=== PATIENT | male | born 1965 | race African-American/Black ===

== ENCOUNTER 2023-07-09 20:26 | Inpatient (IN) | payer OTHER ==
[~2023-07-09] VITALS: Ht 167.6 cm; Wt 70.8 kg
[2023-07-09 21:57] LABS: BASOPHILS # (AUTO) 0.2 K/uL (0.0-0.2); EOSINOPHILS % (AUTO) 0.1 % (0.0-6.0); HEMATOCRIT 40 % (39-51); HEMOGLOBIN 13.3 g/dL (13.5-17.5); LYMPHOCYTES % (AUTO) 5.7 % (20.0-44.0); MEAN CORPUSCULAR HEMOGLOBIN 31 PG (26.0-33.0); MEAN CORPUSCULAR HGB CONC 33 g/dl (31.0-36.0); MEAN CORPUSCULAR VOLUME 93 fL (80-96); MONOCYTES # (AUTO) 0.9 K/uL (0.1-1.30); NEUTROPHILS # (AUTO) 15.4 K/uL (1.8-8.9); NEUTROPHILS % (AUTO) 88.2 % (43.0-81.0); PLATELET COUNT (AUTO) 307 K/uL (150-450); RED BLOOD CELL COUNT(AUTO) 4.36 MIL/uL (4.5-6.0); RED CELL DISTRIBUTION WIDTH 16.1 % (11.5-15.0); WHITE BLOOD COUNT (AUTO) 17.4 K/uL (4.3-11.0)
[2023-07-09] MEDS: IV NS 0.9% 1,000 ML BAG IV ONE ×2 (21:58→22:24)
[2023-07-09 22:13] LABS: INR 1.07 (0.91-1.10); PARTIAL THROMBOPLASTIN TIME 31.9 SEC (24.3-34.3); PROTHROMBIN TIME 11.3 SECS (9.2-11.1)
[2023-07-09] MEDS ORDERED: PIPERACI/TAZO 3.375GM/D5W 50ML PB IV ONE (22:22)
[2023-07-09] MEDS: PIPERACILLIN /TAZOBACTAM 3.375 G in IV D5W 50 ML IV ONE ×2 (22:24→22:49)
[2023-07-09] MEDS: VANCOMYCIN 1 GM in IV D5W 250 ML IV ONE (22:27)
[2023-07-09] MEDS ORDERED: VANCOMYCIN 1 GM /D5W 250 ML PB IV ONE (22:27)
[2023-07-09 22:29] LABS: ANISOCYTOSIS 1+; BASOPHILS % (MANUAL) 0 % (0.0-2.0); CREATININE 2.1 mg/dL (0.6-1.3); EOSINOPHILS % (MANUAL) 0 % (0-4); LYMPHOCYTES % (MANUAL) 7 % (16-48); MONOCYTES % (MANUAL) 4 % (0-11.0); NEUTROPHILS % (MANUAL) 89 (42-76); OVALOCYTES 1+; PLATELET ESTIMATE ADEQUATE; POTASSIUM 4.6 mmol/L (3.5-5.1)
[2023-07-09 22:33] LABS: ALBUMIN 1.9 g/dL (3.4-5.0); BILIRUBIN,DIRECT 0.1 mg/dL (0.0-0.2); BILIRUBIN,TOTAL 0.5 mg/dL (0.2-1.0); TOTAL PROTEIN, SERUM 7.4 g/dL (6.4-8.2)
[2023-07-09] MEDS ORDERED: MAGNESIUM HYDROXIDE 30 ML UDC PO PRN (23:30)
[2023-07-09] MEDS ORDERED: Z GUARD REMEDY 4 OZ OINT TP PRN (23:30)
[2023-07-09] MEDS ORDERED: IV NS 0.9% 1,000 ML IV PRN (23:30)
[2023-07-09] MEDS ORDERED: ACETAMINOPHEN 325 MG TABLET PO PRN (23:30)
[2023-07-09] MEDS ORDERED: MAG HYDROX/AL HYDROX/SIMETH 30 ML UDC PO PRN (23:30)
[2023-07-09] MEDS ORDERED: ONDANSETRON HCL/PF 4 MG/2 ML VIAL IVP PRN (23:30)
[2023-07-09] MEDS ORDERED: ZOLPIDEM TARTRATE 5 MG TABLET PO PRN (23:30)
[2023-07-09] MEDS: PANTOPRAZOLE 40 MG VIAL IV ONE (23:43)
[2023-07-10] VITALS (15 sets, daily range): BP systolic 102–122; BP diastolic 75–88; TEMP 97.9–98.8; O2SAT 97–100
[2023-07-10] MEDS ORDERED: MAGNESIUM HYDROXIDE 30 ML UDC PO PRN (02:00)
[2023-07-10] MEDS ORDERED: ONDANSETRON HCL/PF 4 MG/2 ML VIAL IVP PRN (02:00)
[2023-07-10] MEDS ORDERED: ZOLPIDEM TARTRATE 5 MG TABLET PO PRN (02:00)
[2023-07-10] MEDS ORDERED: Z GUARD REMEDY 4 OZ OINT TP PRN (02:00)
[2023-07-10] MEDS ORDERED: MAG HYDROX/AL HYDROX/SIMETH 30 ML UDC PO PRN (02:00)
[2023-07-10] MEDS ORDERED: ACETAMINOPHEN 325 MG TABLET PO PRN (02:00)
[2023-07-10] MEDS: IV NS 0.9% 1,000 ML IV PRN (04:35)
[2023-07-10] MEDS ORDERED: PIPERACILLIN /TAZOBACTAM 3.375 G in IV D5W 50 ML IV SCH ×2 (06:00)
[2023-07-10] MEDS: PANTOPRAZOLE 40 MG VIAL IV SCH (08:30)
[2023-07-10] MEDS ORDERED: GLYC2TAB21 GT (08:31)
[2023-07-10] MEDS ORDERED: ACET160E36 PO (08:31)
[2023-07-10] MEDS ORDERED: MAGN400O6 GT (08:31)
[2023-07-10] MEDS ORDERED: SENN8.6T19 GT (08:31)
[2023-07-10] MEDS ORDERED: NA P133E RC (08:31)
[2023-07-10] MEDS ORDERED: CHLO118L6 TP (08:31)
[2023-07-10] MEDS ORDERED: BISA10SU11 RC (08:31)
[2023-07-10] MEDS ORDERED: DOCU100T2 GT (08:31)
[2023-07-10] MEDS ORDERED: ENOX40DI SQ (08:31)
[2023-07-10] MEDS ORDERED: NUTR250L50 GT (08:31)
[2023-07-10] MEDS ORDERED: FAMO20TA8 PO (08:31)
[2023-07-10] MEDS ORDERED: ALBU2.5V38 IH (08:31)
[2023-07-10] MEDS ORDERED: ACET-637 GT (08:31)
[2023-07-10] MEDS ORDERED: AMLO-213 GT (08:31)
[2023-07-10] MEDS ORDERED: PANTOPRAZOLE 40 MG VIAL IV SCH (09:00)
[2023-07-10] MEDS: PIPERACILLIN /TAZOBACTAM 3.375 G in IV D5W 100 ML IV SCH (10:54)
[2023-07-10] MEDS: NEOMY SULF/BACITRAC ZN/POLY 15 GM TUBE TP SCH (10:54)
[2023-07-10] MEDS: THERAHONEY GEL 1.5 OZ TUBE TP SCH (14:00)
[2023-07-10] MEDS: MUPIROCIN OINT 2% 22 GM TUBE TP SCH (14:00)
[2023-07-10] MEDS ORDERED: CHLORHEXIDINE GLUCONATE 15 ML UDC MM SCH (16:00)
[2023-07-10] MEDS ORDERED: BISACODYL SUPP (10 MG) 10 MG/SUPP.RECT SUPP.RECT RC PRN (16:00)
[2023-07-10] MEDS: VANCOMYCIN 1 GM in IV D5W 250 ML IV SCH (17:16)
[2023-07-10 19:36] LABS: BASOPHILS % (AUTO) 0.2 % (0.0-2.0); EOSINOPHILS % (AUTO) 0.3 % (0.0-6.0); HEMATOCRIT 35 % (39-51); HEMOGLOBIN 11.6 g/dL (13.5-17.5); LYMPHOCYTES # (AUTO) 1.3 K/uL (0.8-4.8); LYMPHOCYTES % (AUTO) 9.6 % (20.0-44.0); MEAN CORPUSCULAR HEMOGLOBIN 31 PG (26.0-33.0); MEAN CORPUSCULAR HGB CONC 33 g/dl (31.0-36.0); MEAN CORPUSCULAR VOLUME 93 fL (80-96); MONOCYTES # (AUTO) 0.9 K/uL (0.1-1.30); MONOCYTES % (AUTO) 6.8 % (2.0-12.0); NEUTROPHILS # (AUTO) 10.9 K/uL (1.8-8.9); NEUTROPHILS % (AUTO) 83.1 % (43.0-81.0); PLATELET COUNT (AUTO) 270 K/uL (150-450); RED BLOOD CELL COUNT(AUTO) 3.76 MIL/uL (4.5-6.0); RED CELL DISTRIBUTION WIDTH 16.5 % (11.5-15.0); WHITE BLOOD COUNT (AUTO) 13.2 K/uL (4.3-11.0)
[2023-07-10 20:49] LABS: CREATININE, URINE 133.9 MG/DL (30.0-125.0); URINE TOTAL PROTEIN 46.3 mg/dL (0-11.9)
[2023-07-10 20:52] LABS: ALBUMIN 1.7 g/dL (3.4-5.0); BILIRUBIN,TOTAL 0.6 mg/dL (0.2-1.0); CALCIUM, SERUM 8.5 mg/dL (8.5-10.1); CREATININE 1.3 mg/dL (0.6-1.3); PHOSPHORUS 4.4 mg/dL (2.5-4.9); TOTAL PROTEIN, SERUM 6.7 g/dL (6.4-8.2)
[2023-07-10 21:05] LABS: APPEARANCE,URINE SLIGHTLY CLOUDY (CLEAR); COLOR,URINE YELLOW (YELLOW)
[2023-07-10 21:06] LABS: BILIRUBIN,URINE NEGATIVE (NEGATIVE); BLOOD, URINE 2+ Ery/uL (NEGATIVE); KETONES,URINE NEGATIVE (NEGATIVE); LEUKOCYTE ESTERASE ,URINE TRACE (NEGATIVE); PROTEIN,URINE TRACE mg/dl (NEGATIVE); UGLUCOSE NEGATIVE (NEGATIVE)
[2023-07-10] MEDS: SENNOSIDES 8.6 MG TABLET GT SCH (21:06)
[2023-07-10] MEDS: GLYCOPYRROLATE 1 MG TABLET GT SCH (21:06)
[2023-07-10 21:07] LABS: NITRITE, URINE NEGATIVE (NEGATIVE); UROBILINOGEN,URINE 0.2 EU/dL (0.2)
[2023-07-10 21:11] LABS: ADD URINE CULTURE NO; BACTERIA,URINE 1+ /HPF (None Seen); RBC,URINE 21-50 /HPF (0-2); URINE AMORPHOUS URATE Few /HPF (None Seen)
[2023-07-10 21:26] LABS: EOSINOPHIL,URINE None Seen
[2023-07-11] VITALS (12 sets, daily range): BP systolic 99–117; BP diastolic 59–83; TEMP 97.5–98.7; O2SAT 95–100
[2023-07-11] MEDS: DOCUSATE SODIUM LIQ 100 MG/10 ML UDC GT SCH (08:15)
[2023-07-11] MEDS: PROSOURCE / PROSTAT (PYXIS) 30 ML UDC GT SCH (08:16)
[2023-07-11 08:17] LABS: BASOPHILS % (AUTO) 0.3 % (0.0-2.0); EOSINOPHILS # (AUTO) 0.1 K/uL (0.0-0.7); EOSINOPHILS % (AUTO) 1.3 % (0.0-6.0); HEMATOCRIT 33 % (39-51); LYMPHOCYTES # (AUTO) 1.2 K/uL (0.8-4.8); LYMPHOCYTES % (AUTO) 11.4 % (20.0-44.0); MEAN CORPUSCULAR HEMOGLOBIN 31 PG (26.0-33.0); MEAN CORPUSCULAR HGB CONC 33 g/dl (31.0-36.0); MEAN CORPUSCULAR VOLUME 94 fL (80-96); MONOCYTES # (AUTO) 0.6 K/uL (0.1-1.30); MONOCYTES % (AUTO) 6.1 % (2.0-12.0); NEUTROPHILS # (AUTO) 8.4 K/uL (1.8-8.9); NEUTROPHILS % (AUTO) 80.9 % (43.0-81.0); PLATELET COUNT (AUTO) 255 K/uL (150-450); RED BLOOD CELL COUNT(AUTO) 3.54 MIL/uL (4.5-6.0); RED CELL DISTRIBUTION WIDTH 16.1 % (11.5-15.0); WHITE BLOOD COUNT (AUTO) 10.4 K/uL (4.3-11.0)
[2023-07-11 08:48] LABS: ALBUMIN 1.5 g/dL (3.4-5.0); BILIRUBIN,TOTAL 0.5 mg/dL (0.2-1.0); CALCIUM, SERUM 8.3 mg/dL (8.5-10.1); MAGNESIUM 2.1 mg/dL (1.8-2.4); PHOSPHORUS 3.4 mg/dL (2.5-4.9); POTASSIUM 3.7 mmol/L (3.5-5.1); TOTAL PROTEIN, SERUM 6.4 g/dL (6.4-8.2)
[2023-07-11 14:20] LABS: IRON, SERUM 32 ug/dl (50-175); TOTAL IRON BINDING CAPACITY 143 ug/dl (250-450)
[2023-07-11 15:35] LABS: FERRITIN 1682 ng/mL (8-388)
[2023-07-11] MEDS: VANCOMYCIN 1 GM in IV D5W 250 ML IV SCH (17:14)
[2023-07-12] VITALS (14 sets, daily range): BP systolic 115–133; BP diastolic 73–91; TEMP 97.2–98.8; O2SAT 96–100
[2023-07-12 07:40] LABS: BASOPHILS % (AUTO) 0.2 % (0.0-2.0); EOSINOPHILS # (AUTO) 0.4 K/uL (0.0-0.7); EOSINOPHILS % (AUTO) 3.8 % (0.0-6.0); HEMATOCRIT 32 % (39-51); HEMOGLOBIN 10.5 g/dL (13.5-17.5); LYMPHOCYTES # (AUTO) 1.2 K/uL (0.8-4.8); LYMPHOCYTES % (AUTO) 12.5 % (20.0-44.0); MEAN CORPUSCULAR HEMOGLOBIN 31 PG (26.0-33.0); MEAN CORPUSCULAR HGB CONC 33 g/dl (31.0-36.0); MEAN CORPUSCULAR VOLUME 95 fL (80-96); MONOCYTES # (AUTO) 0.6 K/uL (0.1-1.30); MONOCYTES % (AUTO) 6.2 % (2.0-12.0); NEUTROPHILS # (AUTO) 7.7 K/uL (1.8-8.9); NEUTROPHILS % (AUTO) 77.3 % (43.0-81.0); PLATELET COUNT (AUTO) 286 K/uL (150-450); RED BLOOD CELL COUNT(AUTO) 3.35 MIL/uL (4.5-6.0); RED CELL DISTRIBUTION WIDTH 15.9 % (11.5-15.0); WHITE BLOOD COUNT (AUTO) 9.9 K/uL (4.3-11.0)
[2023-07-12 08:05] LABS: CALCIUM, SERUM 7.8 mg/dL (8.5-10.1); CREATININE 0.9 mg/dL (0.6-1.3); MAGNESIUM 2.1 mg/dL (1.8-2.4); PHOSPHORUS 2.5 mg/dL (2.5-4.9); POTASSIUM 3.5 mmol/L (3.5-5.1)
[2023-07-13] VITALS (11 sets, daily range): BP systolic 103–146; BP diastolic 77–94; TEMP 97.6–98.6; O2SAT 96–100
[2023-07-13 11:42] LABS: BASOPHILS % (AUTO) 0.2 % (0.0-2.0); EOSINOPHILS # (AUTO) 0.5 K/uL (0.0-0.7); EOSINOPHILS % (AUTO) 5.3 % (0.0-6.0); HEMATOCRIT 35 % (39-51); LYMPHOCYTES # (AUTO) 1.2 K/uL (0.8-4.8); LYMPHOCYTES % (AUTO) 13.6 % (20.0-44.0); MEAN CORPUSCULAR HEMOGLOBIN 30 PG (26.0-33.0); MEAN CORPUSCULAR HGB CONC 32 g/dl (31.0-36.0); MEAN CORPUSCULAR VOLUME 95 fL (80-96); MONOCYTES # (AUTO) 0.7 K/uL (0.1-1.30); MONOCYTES % (AUTO) 8.1 % (2.0-12.0); NEUTROPHILS # (AUTO) 6.2 K/uL (1.8-8.9); NEUTROPHILS % (AUTO) 72.8 % (43.0-81.0); PLATELET COUNT (AUTO) 270 K/uL (150-450); RED BLOOD CELL COUNT(AUTO) 3.63 MIL/uL (4.5-6.0); RED CELL DISTRIBUTION WIDTH 15.8 % (11.5-15.0); WHITE BLOOD COUNT (AUTO) 8.5 K/uL (4.3-11.0)
[2023-07-13 12:00] LABS: CREATININE 0.9 mg/dL (0.6-1.3); MAGNESIUM 1.8 mg/dL (1.8-2.4); PHOSPHORUS 2.3 mg/dL (2.5-4.9); POTASSIUM 3.4 mmol/L (3.5-5.1)
[2023-07-13 14:07] LABS: *SPE A/G RATIO 0.6 (0.7-1.7); *SPE ALBUMIN 2.1 g/dL (2.9-4.4); *SPE ALPHA-1-GLOBULIN 0.5 g/dL (0.0-0.4); *SPE BETA GLOBULIN 0.9 g/dL (0.7-1.3); *SPE GLOBULIN, TOTAL 3.7 g/dL (2.2-3.9); *SPE M-SPIKE Not Observed g/dL (Not Observed); *SPE PROTEIN TOTAL 5.8 g/dL (6.0-8.5); *SPEGAMMA GLOBULIN 1.4 g/dL (0.4-1.8)
[2023-07-13] MEDS: NEUTRA PHOS 1 POWD.PACKET NG ONE (16:38)
[2023-07-14] VITALS (9 sets, daily range): BP systolic 131–151; BP diastolic 81–98; TEMP 97.2–98.8; O2SAT 96–100
[2023-07-14 01:12] LABS: PTH, INTACT 14 pg/mL (15-65)
[2023-07-14 07:28] LABS: BASOPHILS % (AUTO) 0.4 % (0.0-2.0); EOSINOPHILS # (AUTO) 0.6 K/uL (0.0-0.7); EOSINOPHILS % (AUTO) 7.3 % (0.0-6.0); HEMATOCRIT 33 % (39-51); HEMOGLOBIN 10.7 g/dL (13.5-17.5); LYMPHOCYTES # (AUTO) 1.3 K/uL (0.8-4.8); LYMPHOCYTES % (AUTO) 16.3 % (20.0-44.0); MEAN CORPUSCULAR HEMOGLOBIN 31 PG (26.0-33.0); MEAN CORPUSCULAR HGB CONC 33 g/dl (31.0-36.0); MEAN CORPUSCULAR VOLUME 94 fL (80-96); MONOCYTES # (AUTO) 0.6 K/uL (0.1-1.30); MONOCYTES % (AUTO) 7.5 % (2.0-12.0); NEUTROPHILS # (AUTO) 5.7 K/uL (1.8-8.9); NEUTROPHILS % (AUTO) 68.5 % (43.0-81.0); PLATELET COUNT (AUTO) 313 K/uL (150-450); RED BLOOD CELL COUNT(AUTO) 3.49 MIL/uL (4.5-6.0); RED CELL DISTRIBUTION WIDTH 15.6 % (11.5-15.0); WHITE BLOOD COUNT (AUTO) 8.3 K/uL (4.3-11.0)
[2023-07-14 08:51] LABS: CALCIUM, SERUM 8.1 mg/dL (8.5-10.1); CREATININE 0.8 mg/dL (0.6-1.3); POTASSIUM 3.4 mmol/L (3.5-5.1)
[2023-07-14] MEDS: PANTOPRAZOLE 40 MG/PACK PACK GT SCH (09:00)
[2023-07-14] MEDS: POTASSIUM CHLORIDE 20 MEQ POWDER PACKET NG SCH (10:04)
[2023-07-14] MEDS: GLUCERNA 1.2 1,000 ML BOTTLE NG PRN (11:17)
== END 2023-07-14 18:02 | DRG 720 ==
LOC: ER 20:38 → TELE1 07-10 01:15
PROVIDERS: ADMIT Nurse Practitioner Family; ATTEND Internal Medicine
DX: A41.89 Other specified sepsis (principal); G93.41 Metabolic encephalopathy; U07.1 COVID-19; J95.851 Ventilator associated pneumonia; J15.69 Pneumonia due to other Gram-negative bacteria; E43 Unspecified severe protein-calorie malnutrition; D68.69 Other thrombophilia; L89.156 Pressure-induced deep tissue damage of sacral region; J96.10 Chronic respiratory failure, unspecified whether with hypoxia or hypercapnia; N17.9 Acute kidney failure, unspecified; K92.2 Gastrointestinal hemorrhage, unspecified; N18.9 Chronic kidney disease, unspecified; I12.9 Hypertensive chronic kidney disease with stage 1 through stage 4 chronic kidney disease, or unspecified chronic kidney disease; D64.9 Anemia, unspecified; E88.09 Other disorders of plasma-protein metabolism, not elsewhere classified; R13.10 Dysphagia, unspecified; Z74.01 Bed confinement status; Z86.16 Personal history of COVID-19; Z93.0 Tracheostomy status; Z93.1 Gastrostomy status; Z99.11 Dependence on respirator [ventilator] status; R74.01 Elevation of levels of liver transaminase levels; Y83.3 Surgical operation with formation of external stoma as the cause of abnormal reaction of the patient, or of later complication, without mention of misadventure at the time of the procedure; Y92.129 Unspecified place in nursing home as the place of occurrence of the external cause; Z68.25 Body mass index [BMI] 25.0-25.9, adult; L89.316 Pressure-induced deep tissue damage of right buttock; R21 Rash and other nonspecific skin eruption; J98.11 Atelectasis; Z87.820 Personal history of traumatic brain injury
CPT/HCPCS: 31720; 36415; 71045-TC; 76770-TC; 80048-TC; 80053-TC; 80076-TC; 80202-TC; 81001; 82550-TC; 82553; 82570-TC; 82607-TC; 82728-TC; 83540-TC; 83605-TC; 83690-TC; 83735-TC; 83970; 84100-TC; 84155; 84165; 84300-TC; 85025-TC; 85045-TC; 85378-TC; 85730-TC; 86140-TC; 86850-TC; 87040-TC; 87081-TC; 87086-TC; 93970-TC; 94640-TC; 94760-TC; 94762-TC; 94799-TC; 97110-TC; 97530-TC; A4223; A7526; C9113; G0378; J2543; J3370; J7030; J7040; J7050; J7060

== ENCOUNTER 2024-02-03 15:04 | Inpatient (IN) | payer OTHER ==
[~2024-02-03] VITALS: Ht 182.9 cm; Wt 64.9 kg
[~2024-02-03 15:04] MED LIST: ACET-637 GT; ACET160E36 PO; ALBU2.5V38 IH; AMLO-213 GT; BISA10SU11 RC; CHLO118L6 TP; DOCU100T2 GT; ENOX40DI SQ; FAMO20TA8 PO; GLYC2TAB21 GT; MAGN400O6 GT; NA P133E RC; NUTR250L50 GT; SENN8.6T19 GT
[2024-02-03 15:27] LABS: BASOPHILS % (AUTO) 0.3 % (0.0-2.0); EOSINOPHILS # (AUTO) 0.2 K/uL (0.0-0.7); EOSINOPHILS % (AUTO) 1.8 % (0.0-6.0); HEMATOCRIT 33 % (39-51); HEMOGLOBIN 9.4 g/dL (13.5-17.5); LYMPHOCYTES # (AUTO) 1.6 K/uL (0.8-4.8); LYMPHOCYTES % (AUTO) 12.8 % (20.0-44.0); MEAN CORPUSCULAR HEMOGLOBIN 23 PG (26.0-33.0); MEAN CORPUSCULAR HGB CONC 29 g/dl (31.0-36.0); MEAN CORPUSCULAR VOLUME 81 fL (80-96); MONOCYTES # (AUTO) 0.7 K/uL (0.1-1.30); MONOCYTES % (AUTO) 5.2 % (2.0-12.0); NEUTROPHILS # (AUTO) 10.3 K/uL (1.8-8.9); NEUTROPHILS % (AUTO) 79.9 % (43.0-81.0); PLATELET COUNT (AUTO) 495 K/uL (150-450); RED BLOOD CELL COUNT(AUTO) 4.06 MIL/uL (4.5-6.0); WHITE BLOOD COUNT (AUTO) 12.9 K/uL (4.3-11.0)
[2024-02-03] MEDS: IV NS 0.9% 1,000 ML BAG IV ONE (15:30)
[2024-02-03] MEDS: PIPERACILLIN /TAZOBACTAM 3.375 G in IV D5W 50 ML IV ONE (15:45)
[2024-02-03 15:47] LABS: ALANINE AMINOTRANSFERASE 34 U/L (12-78); ALKALINE PHOSPHATASE 107 U/L (46-116); ASPARTATE AMINOTRANSFERASE 45 U/L (15-37); BILIRUBIN,DIRECT 0.1 mg/dL (0.0-0.2); BILIRUBIN,TOTAL 0.2 mg/dL (0.2-1.0); CALCIUM, SERUM 9.1 mg/dL (8.5-10.1); CARBON DIOXIDE 28 mmol/L (21-32); CHLORIDE 112 mmol/L (98-107); CREATININE 0.7 mg/dL (0.6-1.3); GLUCOSE 104 mg/dL (74-106); POTASSIUM 5.1 mmol/L (3.5-5.1); SODIUM SERUM 146 mmol/L (136-145); UREA NITROGEN, BLOOD 22 mg/dL (7-18)
[2024-02-03 15:49] LABS: ALBUMIN 1.4 g/dL (3.4-5.0)
[2024-02-03 15:53] LABS: INR 1.09 (0.91-1.10); PARTIAL THROMBOPLASTIN TIME 22.8 SEC (24.3-34.3); PROTHROMBIN TIME 11.5 SECS (9.2-11.1)
[2024-02-03] MEDS: ACETAMINOPHEN 650 MG/SUPP.RECT RC ONE (16:00)
[2024-02-03] MEDS ORDERED: ACETAMINOPHEN 650 MG/SUPP.RECT RC ONE (16:01)
[2024-02-03 16:15] LABS: APPEARANCE,URINE SLIGHTLY CLOUDY (CLEAR); BILIRUBIN,URINE NEGATIVE (NEGATIVE); BLOOD, URINE 3+ Ery/uL (NEGATIVE); COLOR,URINE YELLOW (YELLOW); KETONES,URINE NEGATIVE (NEGATIVE); LEUKOCYTE ESTERASE ,URINE 1+ (NEGATIVE); NITRITE, URINE POSITIVE (NEGATIVE); PROTEIN,URINE TRACE mg/dl (NEGATIVE); UGLUCOSE NEGATIVE (NEGATIVE)
[2024-02-03 16:28] LABS: BACTERIA,URINE Many /HPF (None Seen); CALCIUM OXALATE CRYSTALS,UR Few /HPF (None Seen); SQUAMOUS EPITHELIAL CELL,UR None Seen /HPF (None Seen)
[2024-02-03 16:29] LABS: RBC,URINE 21-50 /HPF (0-2)
[2024-02-03 16:30] LABS: ADD URINE CULTURE YES; WBC,URINE 51-80 /HPF (0-3)
[2024-02-03] MEDS: VANCOMYCIN 1 GM in IV D5W 250 ML IV ONE (16:35)
[2024-02-03] MEDS ORDERED: ONDANSETRON HCL/PF 4 MG/2 ML VIAL IVP PRN (17:30)
[2024-02-03] MEDS ORDERED: MORPHINE SULFATE INJ 2 MG/ML DISP.SYRIN IV PRN (17:30)
[2024-02-03] MEDS ORDERED: ALBUTEROL FS 2.5 MG/0.5 ML VIAL.NEB NEB PRN (17:30)
[2024-02-03] MEDS ORDERED: AMIN30LI66 GT (18:12)
[2024-02-03] MEDS ORDERED: ALBU2.5V13 IH (18:12)
[2024-02-03] MEDS ORDERED: ASCO500L2 GT (18:12)
[2024-02-03] MEDS ORDERED: PANT40SU2 GT (18:12)
[2024-02-03] MEDS ORDERED: SENN-261 GT (18:12)
[2024-02-03] MEDS ORDERED: ALBU2.5V11 IH (18:12)
[2024-02-03] MEDS ORDERED: ACET160L44 GT (18:12)
[2024-02-03] MEDS ORDERED: ONDA-97 GT (18:12)
[2024-02-03] MEDS ORDERED: DOCU100C36 GT (18:12)
[2024-02-03 20:00] VITALS: BP 109/77; TEMP 98.8; O2SAT 99
[2024-02-03 23:31] VITALS: O2SAT 100
[2024-02-03] MEDS: HEPARIN SODIUM, PORCINE 5000 UNITS/1 ML VIAL SQ SCH (23:52)
[2024-02-04] VITALS (12 sets, daily range): BP systolic 101–114; BP diastolic 75–80; TEMP 98.1–99.7; O2SAT 98–100
[2024-02-04] MEDS: TWOCAL HN 1,000 ML LIQUID GT PRN (01:43)
[2024-02-04 06:32] LABS: BASOPHILS % (AUTO) 0.4 % (0.0-2.0); EOSINOPHILS # (AUTO) 0.4 K/uL (0.0-0.7); EOSINOPHILS % (AUTO) 4.4 % (0.0-6.0); HEMATOCRIT 28 % (39-51); HEMOGLOBIN 8.5 g/dL (13.5-17.5); LYMPHOCYTES # (AUTO) 0.9 K/uL (0.8-4.8); LYMPHOCYTES % (AUTO) 10.2 % (20.0-44.0); MEAN CORPUSCULAR HEMOGLOBIN 23 PG (26.0-33.0); MEAN CORPUSCULAR HGB CONC 30 g/dl (31.0-36.0); MEAN CORPUSCULAR VOLUME 78 fL (80-96); MONOCYTES # (AUTO) 0.5 K/uL (0.1-1.30); MONOCYTES % (AUTO) 5.2 % (2.0-12.0); NEUTROPHILS # (AUTO) 7.2 K/uL (1.8-8.9); NEUTROPHILS % (AUTO) 79.8 % (43.0-81.0); PLATELET COUNT (AUTO) 462 K/uL (150-450); RED BLOOD CELL COUNT(AUTO) 3.63 MIL/uL (4.5-6.0); RED CELL DISTRIBUTION WIDTH 20.1 % (11.5-15.0)
[2024-02-04 07:12] LABS: BILIRUBIN,TOTAL 0.2 mg/dL (0.2-1.0); CALCIUM, SERUM 8.8 mg/dL (8.5-10.1); CREATININE 0.7 mg/dL (0.6-1.3); MAGNESIUM 2.1 mg/dL (1.8-2.4); POTASSIUM 3.5 mmol/L (3.5-5.1); TOTAL PROTEIN, SERUM 8.1 g/dL (6.4-8.2)
[2024-02-04 07:29] LABS: PHOSPHORUS 3.8 mg/dL (2.5-4.9)
[2024-02-04 08:18] LABS: ALBUMIN 1.3 g/dL (3.4-5.0)
[2024-02-04] MEDS: CEFTRIAXONE 1 G in IV D5W 50 ML IV SCH (09:27)
[2024-02-04] MEDS: IV D5/0.45 NACL 1,000 ML IV PRN (11:52)
[2024-02-04] MEDS: THERAHONEY GEL 1.5 OZ TUBE TP SCH (12:29)
[2024-02-04 15:28] LABS: URINE SODIUM, RANDOM 25 mmol/l (40-220)
[2024-02-05] VITALS (13 sets, daily range): BP systolic 104–112; BP diastolic 75–84; TEMP 98.1–99.9; O2SAT 97–99
[2024-02-05 07:25] LABS: BASOPHILS % (AUTO) 0.1 % (0.0-2.0); EOSINOPHILS # (AUTO) 0.4 K/uL (0.0-0.7); EOSINOPHILS % (AUTO) 4.4 % (0.0-6.0); HEMATOCRIT 28 % (39-51); HEMOGLOBIN 8.3 g/dL (13.5-17.5); LYMPHOCYTES # (AUTO) 1.2 K/uL (0.8-4.8); LYMPHOCYTES % (AUTO) 14.3 % (20.0-44.0); MEAN CORPUSCULAR HEMOGLOBIN 24 PG (26.0-33.0); MEAN CORPUSCULAR HGB CONC 30 g/dl (31.0-36.0); MEAN CORPUSCULAR VOLUME 79 fL (80-96); MONOCYTES # (AUTO) 0.5 K/uL (0.1-1.30); MONOCYTES % (AUTO) 6.7 % (2.0-12.0); NEUTROPHILS # (AUTO) 6.1 K/uL (1.8-8.9); NEUTROPHILS % (AUTO) 74.5 % (43.0-81.0); PLATELET COUNT (AUTO) 463 K/uL (150-450); RED BLOOD CELL COUNT(AUTO) 3.54 MIL/uL (4.5-6.0); WHITE BLOOD COUNT (AUTO) 8.2 K/uL (4.3-11.0)
[2024-02-05 08:15] LABS: CALCIUM, SERUM 8.5 mg/dL (8.5-10.1); CREATININE 0.7 mg/dL (0.6-1.3); POTASSIUM 3.8 mmol/L (3.5-5.1)
[2024-02-05 08:19] LABS: MAGNESIUM 2.2 mg/dL (1.8-2.4); PHOSPHORUS 2.9 mg/dL (2.5-4.9)
[2024-02-05] MEDS: ARGININE/GLUTAMINE/CALCIUM BMB 1 EACH POWD.PACK PEG SCH (13:43)
[2024-02-05] MEDS: IV D5W 1,000 ML IV PRN (13:44)
[2024-02-05 15:13] LABS: OSMOLALITY,URINE 652 mOS/kg (340-1090)
[2024-02-05] MEDS: ACETAMINOPHEN 325 MG TABLET PO PRN (16:26)
[2024-02-05 22:03] LABS: URIC ACID 4.9 mg/dL (2.6-7.2)
[2024-02-05 22:17] LABS: THYROID STIMULATING HORMONE 1.437 uIU/mL (0.358-3.74)
[2024-02-06] VITALS (8 sets, daily range): BP systolic 102–123; BP diastolic 72–87; TEMP 97.7–99.8; O2SAT 98–100
[2024-02-06 14:46] LABS: CALCIUM, SERUM 8.9 mg/dL (8.5-10.1); CREATININE 0.6 mg/dL (0.6-1.3); POTASSIUM 3.7 mmol/L (3.5-5.1)
[2024-02-06 14:49] LABS: TOTAL PROTEIN, SERUM 7.6 g/dL (6.4-8.2)
[2024-02-06 15:02] LABS: ALBUMIN 1.2 g/dL (3.4-5.0)
[2024-02-07] VITALS (9 sets, daily range): BP systolic 113–117; BP diastolic 75–84; TEMP 98.1–98.6; O2SAT 97–100
[2024-02-07 06:45] LABS: BILIRUBIN,TOTAL 0.1 mg/dL (0.2-1.0); CALCIUM, SERUM 8.2 mg/dL (8.5-10.1); CREATININE 0.5 mg/dL (0.6-1.3); POTASSIUM 3.7 mmol/L (3.5-5.1); TOTAL PROTEIN, SERUM 7.4 g/dL (6.4-8.2)
[2024-02-07 07:52] LABS: ALBUMIN 1.2 g/dL (3.4-5.0)
[2024-02-07] MEDS: GLYCOPYRROLATE 1 MG TABLET GT SCH (12:32)
[2024-02-08] VITALS (9 sets, daily range): BP systolic 109–123; BP diastolic 75–87; TEMP 97.7–98.9; O2SAT 98–100
[2024-02-08 06:39] LABS: CALCIUM, SERUM 8.2 mg/dL (8.5-10.1); CREATININE 0.5 mg/dL (0.6-1.3); POTASSIUM 3.7 mmol/L (3.5-5.1)
[2024-02-08 06:44] LABS: TOTAL PROTEIN, SERUM 7.3 g/dL (6.4-8.2)
[2024-02-08 06:58] LABS: BILIRUBIN,TOTAL 0.1 mg/dL (0.2-1.0)
[2024-02-08 07:20] LABS: ALBUMIN 1.2 g/dL (3.4-5.0)
[2024-02-08] MEDS: FREE WATER VIA TUBE FEEDING GT SCH (11:07)
[2024-02-09] VITALS (8 sets, daily range): BP systolic 110–136; BP diastolic 70–88; TEMP 98.1–99.2; O2SAT 95–99
[2024-02-09 06:42] LABS: CALCIUM, SERUM 8.8 mg/dL (8.5-10.1); CREATININE 0.5 mg/dL (0.6-1.3); POTASSIUM 3.8 mmol/L (3.5-5.1)
[2024-02-09 06:48] LABS: TOTAL PROTEIN, SERUM 8.1 g/dL (6.4-8.2)
[2024-02-09 06:54] LABS: ALBUMIN 1.4 g/dL (3.4-5.0)
== END 2024-02-09 20:25 | DRG 710 ==
LOC: ER 15:10 → TELE 17:26 → MED 02-05 13:46
PROVIDERS: ADMIT Internal Medicine; ATTEND Nurse Practitioner Acute Care
PROC: 0KB80ZZ Excision of Left Upper Arm Muscle, Open Approach (ICD-10-PCS; principal; 2024-02-09)
PROC: 0KB70ZZ Excision of Right Upper Arm Muscle, Open Approach (ICD-10-PCS; 2024-02-09)
PROC: 0KBG0ZZ Excision of Left Trunk Muscle, Open Approach (ICD-10-PCS; 2024-02-09)
PROC: 0KBF0ZZ Excision of Right Trunk Muscle, Open Approach (ICD-10-PCS; 2024-02-09)
DX: A41.9 Sepsis, unspecified organism (principal); G93.49 Other encephalopathy; E43 Unspecified severe protein-calorie malnutrition; L89.024 Pressure ulcer of left elbow, stage 4; L89.014 Pressure ulcer of right elbow, stage 4; L89.144 Pressure ulcer of left lower back, stage 4; L89.134 Pressure ulcer of right lower back, stage 4; L89.894 Pressure ulcer of other site, stage 4; E87.0 Hyperosmolality and hypernatremia; J96.10 Chronic respiratory failure, unspecified whether with hypoxia or hypercapnia; L89.893 Pressure ulcer of other site, stage 3; E86.0 Dehydration; R53.2 Functional quadriplegia; E88.09 Other disorders of plasma-protein metabolism, not elsewhere classified; I48.91 Unspecified atrial fibrillation; R62.7 Adult failure to thrive; Z93.0 Tracheostomy status; D64.9 Anemia, unspecified; R13.10 Dysphagia, unspecified; Z74.01 Bed confinement status; D75.839 Thrombocytosis, unspecified; I10 Essential (primary) hypertension; Z93.1 Gastrostomy status; N39.0 Urinary tract infection, site not specified; M89.8X9 Other specified disorders of bone, unspecified site; Z20.822 Contact with and (suspected) exposure to COVID-19; Z68.1 Body mass index [BMI] 19.9 or less, adult; E86.9 Volume depletion, unspecified; M24.572 Contracture, left ankle; M24.571 Contracture, right ankle
CPT/HCPCS: 31720; 36415; 71045-TC; 80048-TC; 80053-TC; 80076-TC; 81001; 83605-TC; 83735-TC; 83935-TC; 84100-TC; 84300-TC; 84443-TC; 84484-TC; 84550-TC; 85025-TC; 85730-TC; 87040-TC; 87081-TC; 87086-TC; 94640-TC; 94760-TC; 94761-TC; 94799-TC; A4217; A4223; A6253; A6403; A6407; G0378; J0696; J1644; J2543; J3370; J3490; J7040; J7050; J7060; J7070

== ENCOUNTER 2024-03-11 14:58 | Inpatient (IN) | payer OTHER ==
[~2024-03-11] VITALS: Ht 182.9 cm; Wt 64.9 kg
[2024-03-11] MEDS: PANTOPRAZOLE 40 MG/PACK PACK GT SCH
[~2024-03-11 14:58] MED LIST changes: -ACET160E36 PO; +ACET160L44 GT; +ALBU2.5V11 IH; +ALBU2.5V13 IH; -ALBU2.5V38 IH; +AMIN30LI66 GT; -AMLO-213 GT; +ASCO500L2 GT; -CHLO118L6 TP; +DOCU100C36 GT; -DOCU100T2 GT; -ENOX40DI SQ; -FAMO20TA8 PO; -NUTR250L50 GT; +ONDA-97 GT; +PANT40SU2 GT; +SENN-261 GT; -SENN8.6T19 GT
[2024-03-11 15:50] LABS: BASOPHILS % (AUTO) 0.4 % (0.0-2.0); EOSINOPHILS # (AUTO) 0.5 K/uL (0.0-0.7); EOSINOPHILS % (AUTO) 5.8 % (0.0-6.0); HEMATOCRIT 29 % (39-51); HEMOGLOBIN 8.6 g/dL (13.5-17.5); LYMPHOCYTES # (AUTO) 1.5 K/uL (0.8-4.8); LYMPHOCYTES % (AUTO) 18.2 % (20.0-44.0); MEAN CORPUSCULAR HEMOGLOBIN 23 PG (26.0-33.0); MEAN CORPUSCULAR HGB CONC 30 g/dl (31.0-36.0); MEAN CORPUSCULAR VOLUME 78 fL (80-96); MONOCYTES # (AUTO) 0.5 K/uL (0.1-1.30); MONOCYTES % (AUTO) 6.8 % (2.0-12.0); NEUTROPHILS # (AUTO) 5.5 K/uL (1.8-8.9); NEUTROPHILS % (AUTO) 68.8 % (43.0-81.0); PLATELET COUNT (AUTO) 512 K/uL (150-450); RED BLOOD CELL COUNT(AUTO) 3.71 MIL/uL (4.5-6.0); RED CELL DISTRIBUTION WIDTH 20.8 % (11.5-15.0)
[2024-03-11] MEDS: IV NS 0.9% 1,000 ML BAG IV ONE (15:50)
[2024-03-11 15:57] LABS: APPEARANCE,URINE Turbid (CLEAR); BILIRUBIN,URINE Negative (NEGATIVE); BLOOD, URINE Moderate Ery/uL (NEGATIVE); COLOR,URINE YELLOW (YELLOW); KETONES,URINE Negative (NEGATIVE); LEUKOCYTE ESTERASE ,URINE Moderate (NEGATIVE); NITRITE, URINE Positive (NEGATIVE); PH,URINE 8.5 (5.0-8.0); PROTEIN,URINE 100 mg/dl (NEGATIVE); UGLUCOSE Negative (NEGATIVE)
[2024-03-11 15:58] LABS: CALCIUM, SERUM 8.8 mg/dL (8.5-10.1); CREATININE 0.6 mg/dL (0.6-1.3); POTASSIUM 3.8 mmol/L (3.5-5.1)
[2024-03-11 16:00] LABS: INR 1.05 (0.91-1.10); PROTHROMBIN TIME 10.8 SECS (9.2-11.1)
[2024-03-11 16:04] LABS: ALBUMIN 1.5 g/dL (3.4-5.0); BILIRUBIN,TOTAL 0.2 mg/dL (0.2-1.0); TOTAL PROTEIN, SERUM 8.1 g/dL (6.4-8.2)
[2024-03-11 16:07] LABS: ADD URINE CULTURE YES; BACTERIA,URINE 3+ /HPF (None Seen)
[2024-03-11 16:08] LABS: SQUAMOUS EPITHELIAL CELL,UR Few /HPF (None Seen)
[2024-03-11 16:11] LABS: LACTIC ACID 0.8 mmol/L (0.4-2.0)
[2024-03-11] MEDS: CEFEPIME 1 GM in IV D5W 50 ML IV ONE (16:15)
[2024-03-11] MEDS ORDERED: NUTR250L62 GT (16:19)
[2024-03-11] MEDS ORDERED: ZINC50TA69 GT (16:19)
[2024-03-11] MEDS ORDERED: MULT-225 GT (16:19)
[2024-03-11] MEDS: VANCOMYCIN 1 GM in IV D5W 250 ML IV ONE (17:15)
[2024-03-11] MEDS ORDERED: ONDANSETRON HCL/PF 4 MG/2 ML VIAL IVP PRN (18:30)
[2024-03-11] MEDS ORDERED: MAGNESIUM HYDROXIDE 30 ML UDC GT PRN (18:30)
[2024-03-11] MEDS ORDERED: NA PHOS,M-B/NA PHOS,DI-BA 1 EA ENEMA RC PRN (18:30)
[2024-03-11] MEDS ORDERED: MAGNESIUM HYDROXIDE 30 ML UDC PO PRN (18:30)
[2024-03-11] MEDS ORDERED: MAG HYDROX/AL HYDROX/SIMETH 30 ML UDC PO PRN (18:30)
[2024-03-11] MEDS ORDERED: ACETAMINOPHEN ES 500 MG TABLET GT PRN (18:30)
[2024-03-11] MEDS: ENOXAPARIN SODIUM 30 MG/0.3 ML DISP.SYRIN SQ SCH (20:00)
[2024-03-11 20:23] VITALS: O2SAT 100
[2024-03-11] MEDS: SENNOSIDES 8.6 MG TABLET GT SCH (22:00)
[2024-03-11 23:42] VITALS: O2SAT 94
[2024-03-12] VITALS (9 sets, daily range): BP systolic 100–116; BP diastolic 70–82; TEMP 98.2–99.4; O2SAT 97–99
[2024-03-12] MEDS: CEFEPIME 2 GM in IV D5W 100 ML IV SCH (00:37)
[2024-03-12] MEDS ORDERED: SENNOSIDES 8.6 MG TABLET ONE (00:58)
[2024-03-12] MEDS ORDERED: PANTOPRAZOLE 40 MG/PACK PACK ONE (00:58)
[2024-03-12] MEDS: VANCOMYCIN HCL 1.25 GM in IV D5W 250 ML IV SCH (01:23)
[2024-03-12] MEDS: DOCUSATE SODIUM 100 MG CAPSULE PO SCH (08:33)
[2024-03-12 13:28] LABS: CALCIUM, SERUM 8.9 mg/dL (8.5-10.1); CREATININE 0.6 mg/dL (0.6-1.3); PHOSPHORUS 3.6 mg/dL (2.5-4.9); POTASSIUM 3.7 mmol/L (3.5-5.1)
[2024-03-12 13:34] LABS: BASOPHILS % (AUTO) 0.3 % (0.0-2.0); EOSINOPHILS # (AUTO) 0.5 K/uL (0.0-0.7); EOSINOPHILS % (AUTO) 6.6 % (0.0-6.0); HEMATOCRIT 28 % (39-51); HEMOGLOBIN 8.5 g/dL (13.5-17.5); LYMPHOCYTES # (AUTO) 1.1 K/uL (0.8-4.8); LYMPHOCYTES % (AUTO) 15.2 % (20.0-44.0); MEAN CORPUSCULAR HEMOGLOBIN 24 PG (26.0-33.0); MEAN CORPUSCULAR HGB CONC 31 g/dl (31.0-36.0); MEAN CORPUSCULAR VOLUME 78 fL (80-96); MONOCYTES # (AUTO) 0.4 K/uL (0.1-1.30); MONOCYTES % (AUTO) 6.2 % (2.0-12.0); NEUTROPHILS % (AUTO) 71.7 % (43.0-81.0); PLATELET COUNT (AUTO) 433 K/uL (150-450); RED BLOOD CELL COUNT(AUTO) 3.55 MIL/uL (4.5-6.0); RED CELL DISTRIBUTION WIDTH 20.2 % (11.5-15.0)
[2024-03-12] MEDS: ALBUTEROL FS 2.5 MG/0.5 ML VIAL.NEB NEB SCH (20:30)
[2024-03-13] VITALS (16 sets, daily range): BP systolic 103–127; BP diastolic 67–87; TEMP 98.1–99.5; O2SAT 94–100
[2024-03-13 09:11] LABS: CALCIUM, SERUM 9.3 mg/dL (8.5-10.1); CREATININE 0.7 mg/dL (0.6-1.3); POTASSIUM 3.7 mmol/L (3.5-5.1)
[2024-03-13] MEDS: VANCOMYCIN 750 MG in IV D5W 250 ML IV SCH (09:43)
[2024-03-13] MEDS: NEPRO 1,000 ML BOTTLE GT PRN (15:55)
[2024-03-14] VITALS (14 sets, daily range): BP systolic 100–105; BP diastolic 66–80; TEMP 98.1–100.2; O2SAT 94–99
[2024-03-14] MEDS: DAKINS QUARTER STRENGTH (0.125%) 480 ML BOTTLE TOP SCH (12:40)
[2024-03-14] MEDS: PROSOURCE / PROSTAT (PYXIS) 30 ML UDC GT SCH (12:50)
[2024-03-14] MEDS: ARGININE/GLUTAMINE/CALCIUM BMB 1 EACH POWD.PACK GT SCH (12:50)
[2024-03-14 16:49] LABS: BASOPHILS % (AUTO) 0.2 % (0.0-2.0); EOSINOPHILS # (AUTO) 0.2 K/uL (0.0-0.7); EOSINOPHILS % (AUTO) 2.3 % (0.0-6.0); HEMATOCRIT 28 % (39-51); HEMOGLOBIN 8.2 g/dL (13.5-17.5); LYMPHOCYTES # (AUTO) 1.4 K/uL (0.8-4.8); LYMPHOCYTES % (AUTO) 14.5 % (20.0-44.0); MEAN CORPUSCULAR HEMOGLOBIN 23 PG (26.0-33.0); MEAN CORPUSCULAR HGB CONC 30 g/dl (31.0-36.0); MEAN CORPUSCULAR VOLUME 78 fL (80-96); MONOCYTES # (AUTO) 0.7 K/uL (0.1-1.30); MONOCYTES % (AUTO) 7.6 % (2.0-12.0); NEUTROPHILS # (AUTO) 7.4 K/uL (1.8-8.9); NEUTROPHILS % (AUTO) 75.4 % (43.0-81.0); PLATELET COUNT (AUTO) 427 K/uL (150-450); RED BLOOD CELL COUNT(AUTO) 3.56 MIL/uL (4.5-6.0); RED CELL DISTRIBUTION WIDTH 20.8 % (11.5-15.0); WHITE BLOOD COUNT (AUTO) 9.8 K/uL (4.3-11.0)
[2024-03-14 17:02] LABS: CALCIUM, SERUM 8.3 mg/dL (8.5-10.1); CREATININE 0.8 mg/dL (0.6-1.3); POTASSIUM 3.6 mmol/L (3.5-5.1)
[2024-03-15] VITALS (12 sets, daily range): BP systolic 87–105; BP diastolic 47–73; TEMP 98.2–102.1; O2SAT 95–99
[2024-03-15 07:16] LABS: CALCIUM, SERUM 8.3 mg/dL (8.5-10.1); CREATININE 0.6 mg/dL (0.6-1.3); POTASSIUM 3.5 mmol/L (3.5-5.1)
[2024-03-15] MEDS: THERAHONEY GEL 1.5 OZ TUBE TP SCH (09:45)
[2024-03-15] MEDS: VANCOMYCIN 750 MG in IV D5W 250 ML IV SCH (09:46)
[2024-03-15] MEDS: ACETAMINOPHEN 325 MG TABLET PO PRN (16:30)
[2024-03-15] MEDS: JEVITY 1.5 CAL LIQUID 1,000 ML BOTTLE GT PRN (17:29)
[2024-03-15] MEDS ORDERED: JEVITY 1.5 CAL LIQUID 1,000 ML BOTTLE GT PRN (17:30)
[2024-03-16] VITALS (13 sets, daily range): BP systolic 91–98; BP diastolic 68–89; TEMP 98.1–98.6; O2SAT 94–100
[2024-03-16 08:05] LABS: CALCIUM, SERUM 8.3 mg/dL (8.5-10.1); CREATININE 0.6 mg/dL (0.6-1.3); POTASSIUM 3.6 mmol/L (3.5-5.1)
[2024-03-16] MEDS: VANCOMYCIN 750 MG in IV D5W 250 ML IV SCH (21:19)
[2024-03-17] VITALS (16 sets, daily range): BP systolic 92–108; BP diastolic 69–75; TEMP 97.9–100; O2SAT 94–100
[2024-03-17 11:59] LABS: CALCIUM, SERUM 8.9 mg/dL (8.5-10.1); CREATININE 0.8 mg/dL (0.6-1.3); POTASSIUM 3.6 mmol/L (3.5-5.1)
[2024-03-18] VITALS (13 sets, daily range): BP systolic 94–102; BP diastolic 67–72; TEMP 96.9–99.1; O2SAT 95–100
[2024-03-18 07:33] LABS: CALCIUM, SERUM 8.6 mg/dL (8.5-10.1); CREATININE 0.7 mg/dL (0.6-1.3); POTASSIUM 3.8 mmol/L (3.5-5.1)
[2024-03-19] VITALS (15 sets, daily range): BP systolic 100–112; BP diastolic 67–74; TEMP 98.1–98.8; O2SAT 96–99
[2024-03-19 06:20] LABS: BASOPHILS % (AUTO) 0.2 % (0.0-2.0); EOSINOPHILS # (AUTO) 0.4 K/uL (0.0-0.7); EOSINOPHILS % (AUTO) 4.7 % (0.0-6.0); HEMATOCRIT 28 % (39-51); HEMOGLOBIN 8.2 g/dL (13.5-17.5); LYMPHOCYTES # (AUTO) 1.5 K/uL (0.8-4.8); LYMPHOCYTES % (AUTO) 16.7 % (20.0-44.0); MEAN CORPUSCULAR HEMOGLOBIN 23 PG (26.0-33.0); MEAN CORPUSCULAR HGB CONC 30 g/dl (31.0-36.0); MEAN CORPUSCULAR VOLUME 78 fL (80-96); MONOCYTES # (AUTO) 0.6 K/uL (0.1-1.30); MONOCYTES % (AUTO) 6.8 % (2.0-12.0); NEUTROPHILS # (AUTO) 6.2 K/uL (1.8-8.9); NEUTROPHILS % (AUTO) 71.6 % (43.0-81.0); PLATELET COUNT (AUTO) 417 K/uL (150-450); RED BLOOD CELL COUNT(AUTO) 3.55 MIL/uL (4.5-6.0); RED CELL DISTRIBUTION WIDTH 20.2 % (11.5-15.0); WHITE BLOOD COUNT (AUTO) 8.7 K/uL (4.3-11.0)
[2024-03-19] MEDS: IV NS 0.9% 1,000 ML IV ONE (08:51)
[2024-03-20] VITALS (14 sets, daily range): BP systolic 93–113; BP diastolic 68–73; TEMP 98.2–98.8; O2SAT 95–100
[2024-03-20 10:28] LABS: CALCIUM, SERUM 8.4 mg/dL (8.5-10.1); CREATININE 0.6 mg/dL (0.6-1.3)
[2024-03-21] VITALS (13 sets, daily range): BP systolic 97–116; BP diastolic 68–81; TEMP 98.2–99.5; O2SAT 94–100
[2024-03-21 09:23] LABS: CALCIUM, SERUM 8.8 mg/dL (8.5-10.1); CREATININE 0.6 mg/dL (0.6-1.3); POTASSIUM 4.9 mmol/L (3.5-5.1)
[2024-03-22] VITALS (9 sets, daily range): BP systolic 97–127; BP diastolic 64–74; TEMP 97.5–99.1; O2SAT 95–100
[2024-03-22 07:20] LABS: CALCIUM, SERUM 8.6 mg/dL (8.5-10.1); CREATININE 0.6 mg/dL (0.6-1.3); POTASSIUM 3.8 mmol/L (3.5-5.1)
[2024-03-22] MEDS ORDERED: VANC750F IV (14:14)
[2024-03-22] MEDS ORDERED: CEFE2FRO IV (14:14)
== END 2024-03-22 19:23 | DRG 317 ==
LOC: ER 15:25 → TRANSITION 17:47 → TELE 03-12 03:13 → MED 03-14 05:49
PROVIDERS: ADMIT Internal Medicine; ATTEND Nurse Practitioner Family
PROC: 0KBG0ZZ Excision of Left Trunk Muscle, Open Approach (ICD-10-PCS; principal; 2024-03-15)
PROC: 0KBF0ZZ Excision of Right Trunk Muscle, Open Approach (ICD-10-PCS; 2024-03-15)
PROC: 0KB80ZZ Excision of Left Upper Arm Muscle, Open Approach (ICD-10-PCS; 2024-03-15)
PROC: 0KB70ZZ Excision of Right Upper Arm Muscle, Open Approach (ICD-10-PCS; 2024-03-15)
PROC: 0KB80ZZ Excision of Left Upper Arm Muscle, Open Approach (ICD-10-PCS; 2024-03-22)
PROC: 0KB70ZZ Excision of Right Upper Arm Muscle, Open Approach (ICD-10-PCS; 2024-03-22)
PROC: 0KBG0ZZ Excision of Left Trunk Muscle, Open Approach (ICD-10-PCS; 2024-03-22)
PROC: 0KBF0ZZ Excision of Right Trunk Muscle, Open Approach (ICD-10-PCS; 2024-03-22)
DX: M86.8X7 Other osteomyelitis, ankle and foot (principal); G93.41 Metabolic encephalopathy; L89.024 Pressure ulcer of left elbow, stage 4; L89.014 Pressure ulcer of right elbow, stage 4; E44.0 Moderate protein-calorie malnutrition; L89.134 Pressure ulcer of right lower back, stage 4; L89.894 Pressure ulcer of other site, stage 4; L89.144 Pressure ulcer of left lower back, stage 4; R53.2 Functional quadriplegia; N39.0 Urinary tract infection, site not specified; R62.7 Adult failure to thrive; Z93.0 Tracheostomy status; E86.0 Dehydration; Z93.1 Gastrostomy status; D68.59 Other primary thrombophilia; E88.09 Other disorders of plasma-protein metabolism, not elsewhere classified; I10 Essential (primary) hypertension; I73.9 Peripheral vascular disease, unspecified; J96.10 Chronic respiratory failure, unspecified whether with hypoxia or hypercapnia; M24.562 Contracture, left knee; M24.561 Contracture, right knee; R13.10 Dysphagia, unspecified; Z74.01 Bed confinement status; B96.89 Other specified bacterial agents as the cause of diseases classified elsewhere; S81.801A Unspecified open wound, right lower leg, initial encounter; X58.XXXA Exposure to other specified factors, initial encounter; Y93.9 Activity, unspecified; Y92.129 Unspecified place in nursing home as the place of occurrence of the external cause; J98.11 Atelectasis; L90.5 Scar conditions and fibrosis of skin; D50.9 Iron deficiency anemia, unspecified; M24.574 Contracture, right foot; M24.575 Contracture, left foot; Z68.1 Body mass index [BMI] 19.9 or less, adult
CPT/HCPCS: 31720; 36415; 71045-TC; 73700-TC; 80048-TC; 80076-TC; 80202-TC; 81001; 82962-TC; 83540-TC; 83605-TC; 83735-TC; 84100-TC; 85025-TC; 85730-TC; 87040-TC; 87081-TC; 87086-TC; 94640-TC; 94760-TC; 94761-TC; 94799-TC; A4217; A4223; A4623; A6253; A6403; G0378; J0692; J1650; J3370; J3371; J7030; J7040; J7060

== ENCOUNTER 2024-04-30 07:28 | Inpatient (IN) | payer OTHER ==
[~2024-04-30] VITALS: Ht 175.3 cm; Wt 78.1 kg
[~2024-04-30 07:28] MED LIST changes: -BISA10SU11 RC; +CEFE2FRO IV; +MULT-225 GT; +NUTR250L62 GT; +VANC750F IV; +ZINC50TA69 GT
[2024-04-30] MEDS ORDERED: ACETAMINOPHEN 650 MG/SUPP.RECT RC ONE (07:35)
[2024-04-30] MEDS: ACETAMINOPHEN 650 MG/SUPP.RECT RC ONE (07:55)
[2024-04-30 08:00] LABS: BASOPHILS % (AUTO) 0.3 % (0.0-2.0); EOSINOPHILS # (AUTO) 0.2 K/uL (0.0-0.7); EOSINOPHILS % (AUTO) 1.4 % (0.0-6.0); HEMATOCRIT 32 % (39-51); HEMOGLOBIN 9.3 g/dL (13.5-17.5); LYMPHOCYTES # (AUTO) 0.8 K/uL (0.8-4.8); LYMPHOCYTES % (AUTO) 7.1 % (20.0-44.0); MEAN CORPUSCULAR HEMOGLOBIN 24 PG (26.0-33.0); MEAN CORPUSCULAR HGB CONC 30 g/dl (31.0-36.0); MEAN CORPUSCULAR VOLUME 80 fL (80-96); MONOCYTES # (AUTO) 0.5 K/uL (0.1-1.30); NEUTROPHILS # (AUTO) 9.1 K/uL (1.8-8.9); NEUTROPHILS % (AUTO) 86.2 % (43.0-81.0); PLATELET COUNT (AUTO) 259 K/uL (150-450); RED BLOOD CELL COUNT(AUTO) 3.97 MIL/uL (4.5-6.0); RED CELL DISTRIBUTION WIDTH 23.9 % (11.5-15.0); WHITE BLOOD COUNT (AUTO) 10.5 K/uL (4.3-11.0)
[2024-04-30] MEDS: IV NS 0.9% 1,000 ML BAG IV ONE (08:00)
[2024-04-30] MEDS: CEFEPIME 2 GM in IV D5W 100 ML IV SCH (08:00)
[2024-04-30 08:09] LABS: CARBON DIOXIDE 23 mmol/L (21-32); CHLORIDE 113 mmol/L (98-107); GLUCOSE 138 mg/dL (74-106); SODIUM SERUM 144 mmol/L (136-145)
[2024-04-30 08:14] LABS: ALANINE AMINOTRANSFERASE 21 U/L (12-78); ALKALINE PHOSPHATASE 108 U/L (46-116); ASPARTATE AMINOTRANSFERASE 31 U/L (15-37); BILIRUBIN,DIRECT 0.1 mg/dL (0.0-0.2); BILIRUBIN,TOTAL 0.2 mg/dL (0.2-1.0); INR 1.14 (0.91-1.10); PARTIAL THROMBOPLASTIN TIME 27.6 SEC (24.3-34.3); TOTAL PROTEIN, SERUM 8.6 g/dL (6.4-8.2)
[2024-04-30 08:15] LABS: UREA NITROGEN, BLOOD 90 mg/dL (7-18)
[2024-04-30 08:16] LABS: CREATININE 4.1 mg/dL (0.6-1.3)
[2024-04-30 08:17] LABS: ALBUMIN 1.4 g/dL (3.4-5.0)
[2024-04-30 08:18] VITALS: O2SAT 96
[2024-04-30 08:20] VITALS: O2SAT 96
[2024-04-30 08:20] LABS: LACTIC ACID 1.8 mmol/L (0.4-2.0)
[2024-04-30] MEDS: IV NS 0.9% 500 ML BAG IV ONE (08:30)
[2024-04-30] MEDS ORDERED: LACT-96 GT (08:46)
[2024-04-30] MEDS ORDERED: SENN-291 GT (08:46)
[2024-04-30] MEDS ORDERED: POVI3780 TP (08:46)
[2024-04-30] MEDS ORDERED: ZINC220T3 GT (08:46)
[2024-04-30] MEDS ORDERED: COLL30OI TP (08:46)
[2024-04-30] MEDS: VANCOMYCIN 1 GM in IV D5W 250 ML IV ONE (09:00)
[2024-04-30 09:05] LABS: APPEARANCE,URINE CLOUDY (CLEAR); BILIRUBIN,URINE NEGATIVE (NEGATIVE); BLOOD, URINE 3+ Ery/uL (NEGATIVE); COLOR,URINE YELLOW (YELLOW); KETONES,URINE TRACE mg/dL (NEGATIVE); LEUKOCYTE ESTERASE ,URINE 1+ (NEGATIVE); NITRITE, URINE NEGATIVE (NEGATIVE); PH,URINE 6.5 (5.0-8.0); PROTEIN,URINE 3+ mg/dl (NEGATIVE); UGLUCOSE NEGATIVE (NEGATIVE); UROBILINOGEN,URINE 0.2 EU/dL (0.2)
[2024-04-30 09:15] LABS: ADD URINE CULTURE YES; BACTERIA,URINE Moderate /HPF (None Seen); SQUAMOUS EPITHELIAL CELL,UR Few /HPF (None Seen)
[2024-04-30 09:17] LABS: YEAST,URINE Moderate /HPF (None Seen)
[2024-04-30 09:18] LABS: RBC,URINE 51-80 /HPF (0-2)
[2024-04-30 09:19] LABS: URINE AMORPHOUS URATE Moderate /HPF (None Seen)
[2024-04-30] MEDS ORDERED: Z GUARD REMEDY 4 OZ OINT TP PRN (10:00)
[2024-04-30] MEDS ORDERED: CEFEPIME 1 GM in IV D5W 50 ML IV SCH (10:00)
[2024-04-30] MEDS ORDERED: ONDANSETRON HCL/PF 4 MG/2 ML VIAL IVP PRN (10:00)
[2024-04-30] MEDS ORDERED: NA PHOS,M-B/NA PHOS,DI-BA 1 EA ENEMA RC PRN (10:30)
[2024-04-30] MEDS ORDERED: ALBUTEROL FS 2.5 MG/3 ML VIAL.NEB IH PRN (10:30)
[2024-04-30] MEDS ORDERED: MAGNESIUM HYDROXIDE 30 ML UDC GT PRN (10:30)
[2024-04-30] MEDS ORDERED: JEVITY 1.5 CAL LIQUID 1,000 ML BOTTLE GT SCH (10:30)
[2024-04-30 10:40] VITALS: BP 132/87; TEMP 99.5; O2SAT 98
[2024-04-30] MEDS: VANCOMYCIN 750 MG in IV D5W 250 ML IV ONE (11:34)
[2024-04-30] MEDS: IV NS 0.9% 1,000 ML IV SCH (12:39)
[2024-04-30] MEDS: JEVITY 1.2 CAL 1,000 ML BOTTLE GT PRN (13:50)
[2024-04-30] MEDS: MEROPENEM 500 MG in IV NS 0.9% 50 ML IV SCH (13:57)
[2024-04-30] MEDS: GLYCOPYRROLATE 1 MG TABLET GT SCH (13:58)
[2024-04-30 15:09] LABS: CALCIUM, SERUM 8.7 mg/dL (8.5-10.1); CREATININE 3.8 mg/dL (0.6-1.3); POTASSIUM 4.6 mmol/L (3.5-5.1)
[2024-04-30 16:00] VITALS: BP 118/79; TEMP 97.9; O2SAT 96
[2024-04-30 19:43] VITALS: O2SAT 94
[2024-04-30 20:00] VITALS: BP 130/81; TEMP 98.8; O2SAT 95
[2024-04-30] MEDS: FLUCONAZOLE (100 MG) 100 MG TABLET PO SCH (22:43)
[2024-04-30] MEDS: SENNOSIDES/DOCUSATE SODIUM 1 UDTAB TABLET GT SCH (23:30)
[2024-05-01] VITALS (14 sets, daily range): BP systolic 122–147; BP diastolic 80–98; TEMP 98.1–99.5; O2SAT 93–99
[2024-05-01] MEDS: ACETAMINOPHEN 650 MG/SUPP.RECT RC PRN (00:31)
[2024-05-01 07:27] LABS: BASOPHILS # (AUTO) 0.1 K/uL (0.0-0.2); BASOPHILS % (AUTO) 0.5 % (0.0-2.0); EOSINOPHILS # (AUTO) 0.7 K/uL (0.0-0.7); EOSINOPHILS % (AUTO) 5.8 % (0.0-6.0); HEMATOCRIT 26 % (39-51); HEMOGLOBIN 7.9 g/dL (13.5-17.5); LYMPHOCYTES # (AUTO) 1.2 K/uL (0.8-4.8); LYMPHOCYTES % (AUTO) 9.2 % (20.0-44.0); MEAN CORPUSCULAR HEMOGLOBIN 24 PG (26.0-33.0); MEAN CORPUSCULAR HGB CONC 30 g/dl (31.0-36.0); MEAN CORPUSCULAR VOLUME 78 fL (80-96); MONOCYTES # (AUTO) 0.4 K/uL (0.1-1.30); MONOCYTES % (AUTO) 3.1 % (2.0-12.0); NEUTROPHILS # (AUTO) 10.5 K/uL (1.8-8.9); NEUTROPHILS % (AUTO) 81.4 % (43.0-81.0); PLATELET COUNT (AUTO) 225 K/uL (150-450); RED BLOOD CELL COUNT(AUTO) 3.34 MIL/uL (4.5-6.0); RED CELL DISTRIBUTION WIDTH 22.6 % (11.5-15.0); WHITE BLOOD COUNT (AUTO) 12.9 K/uL (4.3-11.0)
[2024-05-01 07:59] LABS: BILIRUBIN,TOTAL 0.2 mg/dL (0.2-1.0); CALCIUM, SERUM 8.7 mg/dL (8.5-10.1); CREATININE 3.9 mg/dL (0.6-1.3); MAGNESIUM 2.5 mg/dL (1.8-2.4); POTASSIUM 4.6 mmol/L (3.5-5.1)
[2024-05-01] MEDS ORDERED: PROSTAT (PYXIS) 30 ML UDC GT SCH (09:00)
[2024-05-01] MEDS ORDERED: CEFEPIME 2 GM in IV D5W 100 ML IV SCH (09:00)
[2024-05-01] MEDS: MULTIVITAMINS,THERAGRAN 1 UDTAB TABLET GT SCH (09:10)
[2024-05-01] MEDS: ZINC SULFATE 220 MG CAPSULE GT SCH (09:10)
[2024-05-01] MEDS: ASCORBIC ACID 500 MG TABLET GT SCH (09:10)
[2024-05-01] MEDS: PANTOPRAZOLE 40 MG VIAL IV SCH (09:11)
[2024-05-01] MEDS: PROSOURCE / PROSTAT (PYXIS) 30 ML UDC GT SCH (09:48)
[2024-05-01] MEDS: HEPARIN SODIUM, PORCINE 5000 UNITS/1 ML VIAL SQ SCH (10:33)
[2024-05-01 18:16] LABS: HEMOGLOBIN 8.8 g/dL (13.5-17.5)
[2024-05-01] MEDS: SENNOSIDES/DOCUSATE SODIUM 1 TAB TABLET GT SCH (21:53)
[2024-05-01] MEDS ORDERED: VANCOMYCIN 1 GM in IV D5W 250ml IV SCH (23:00)
[2024-05-02] VITALS (11 sets, daily range): BP systolic 137–147; BP diastolic 87–92; TEMP 97.6–98.6; O2SAT 96–98
[2024-05-02 07:00] LABS: CALCIUM, SERUM 8.7 mg/dL (8.5-10.1); CREATININE 3.7 mg/dL (0.6-1.3); MAGNESIUM 2.6 mg/dL (1.8-2.4); PHOSPHORUS 4.9 mg/dL (2.5-4.9); POTASSIUM 4.8 mmol/L (3.5-5.1)
[2024-05-02 07:15] LABS: OCCULT BLOOD STOOL POSITIVE (NEGATIVE)
[2024-05-02] MEDS ORDERED: PANTOPRAZOLE 40 MG/PACK PACK NG SCH (09:00)
[2024-05-02] MEDS: PANTOPRAZOLE 40 MG VIAL IV SCH (09:01)
[2024-05-02 09:03] LABS: BASOPHILS % (AUTO) 0.1 % (0.0-2.0); EOSINOPHILS # (AUTO) 1.2 K/uL (0.0-0.7); EOSINOPHILS % (AUTO) 16.2 % (0.0-6.0); HEMATOCRIT 29 % (39-51); HEMOGLOBIN 8.9 g/dL (13.5-17.5); LYMPHOCYTES # (AUTO) 1.1 K/uL (0.8-4.8); LYMPHOCYTES % (AUTO) 14.6 % (20.0-44.0); MEAN CORPUSCULAR HEMOGLOBIN 24 PG (26.0-33.0); MEAN CORPUSCULAR HGB CONC 31 g/dl (31.0-36.0); MEAN CORPUSCULAR VOLUME 78 fL (80-96); MONOCYTES # (AUTO) 0.5 K/uL (0.1-1.30); MONOCYTES % (AUTO) 6.3 % (2.0-12.0); NEUTROPHILS # (AUTO) 4.7 K/uL (1.8-8.9); NEUTROPHILS % (AUTO) 62.8 % (43.0-81.0); PLATELET COUNT (AUTO) 232 K/uL (150-450); RED BLOOD CELL COUNT(AUTO) 3.71 MIL/uL (4.5-6.0); RED CELL DISTRIBUTION WIDTH 23.6 % (11.5-15.0); WHITE BLOOD COUNT (AUTO) 7.5 K/uL (4.3-11.0)
[2024-05-02] MEDS: THERAHONEY GEL 1.5 OZ TUBE TP SCH ×2 (11:05→13:33)
[2024-05-03] VITALS (11 sets, daily range): BP systolic 149–162; BP diastolic 93–95; TEMP 98.2–98.4; O2SAT 95–99
[2024-05-03] MEDS: IV D5W 1,000 ML IV SCH (00:04)
[2024-05-03 07:28] LABS: BASOPHILS % (AUTO) 0.3 % (0.0-2.0); EOSINOPHILS # (AUTO) 1.1 K/uL (0.0-0.7); EOSINOPHILS % (AUTO) 15.1 % (0.0-6.0); HEMATOCRIT 27 % (39-51); HEMOGLOBIN 8.1 g/dL (13.5-17.5); LYMPHOCYTES # (AUTO) 1.4 K/uL (0.8-4.8); LYMPHOCYTES % (AUTO) 18.5 % (20.0-44.0); MEAN CORPUSCULAR HEMOGLOBIN 24 PG (26.0-33.0); MEAN CORPUSCULAR HGB CONC 30 g/dl (31.0-36.0); MEAN CORPUSCULAR VOLUME 78 fL (80-96); MONOCYTES # (AUTO) 0.4 K/uL (0.1-1.30); MONOCYTES % (AUTO) 5.2 % (2.0-12.0); NEUTROPHILS # (AUTO) 4.5 K/uL (1.8-8.9); NEUTROPHILS % (AUTO) 60.9 % (43.0-81.0); PLATELET COUNT (AUTO) 230 K/uL (150-450); RED BLOOD CELL COUNT(AUTO) 3.43 MIL/uL (4.5-6.0); WHITE BLOOD COUNT (AUTO) 7.4 K/uL (4.3-11.0)
[2024-05-03 07:29] LABS: CALCIUM, SERUM 8.4 mg/dL (8.5-10.1); CREATININE 3.6 mg/dL (0.6-1.3); MAGNESIUM 2.4 mg/dL (1.8-2.4); PHOSPHORUS 5.2 mg/dL (2.5-4.9); POTASSIUM 4.7 mmol/L (3.5-5.1)
[2024-05-03 07:58] LABS: APPEARANCE,URINE CLOUDY (CLEAR); BILIRUBIN,URINE NEGATIVE (NEGATIVE); BLOOD, URINE 1+ Ery/uL (NEGATIVE); COLOR,URINE YELLOW (YELLOW); KETONES,URINE NEGATIVE (NEGATIVE); LEUKOCYTE ESTERASE ,URINE 2+ (NEGATIVE); NITRITE, URINE NEGATIVE (NEGATIVE); PROTEIN,URINE 3+ mg/dl (NEGATIVE); UGLUCOSE NEGATIVE (NEGATIVE); UROBILINOGEN,URINE 0.2 EU/dL (0.2)
[2024-05-03 08:10] LABS: URINE TOTAL PROTEIN 320.4 mg/dL (0-11.9)
[2024-05-03 08:10] LABS: PTH, INTACT 14 pg/mL (15-65)
[2024-05-03 08:58] LABS: ADD URINE CULTURE YES; BACTERIA,URINE 1+ /HPF (None Seen); SQUAMOUS EPITHELIAL CELL,UR 0-2 /HPF (None Seen); WBC,URINE 21-50 /HPF (0-3); YEAST,URINE Moderate /HPF (None Seen)
[2024-05-03 08:59] LABS: MUCUS,URINE Few /LPF (None Seen)
[2024-05-03 11:53] LABS: EOSINOPHIL,URINE Few
[2024-05-03] MEDS: FREE WATER VIA TUBE FEEDING GT SCH (12:14)
[2024-05-03 19:33] LABS: PROTEIN, BODY FLUID 4.2 G/DL
[2024-05-03 19:37] LABS: WBC, BODY FLUID 406 /cu. mm. (0-200)
[2024-05-03 20:30] LABS: APPEARANCE,SPUN,BODY FLUID CLEAR (CLEAR); TOTAL VOLUME,BODY FLUID 1200 mL
[2024-05-03 20:57] LABS: POLYNUCLEAR, BODY FLUID 33 % (0-25)
[2024-05-04 04:42] VITALS: O2SAT 97
[2024-05-04 07:27] LABS: BASOPHILS % (AUTO) 0.5 % (0.0-2.0); EOSINOPHILS # (AUTO) 0.9 K/uL (0.0-0.7); EOSINOPHILS % (AUTO) 14.7 % (0.0-6.0); HEMATOCRIT 26 % (39-51); LYMPHOCYTES # (AUTO) 1.4 K/uL (0.8-4.8); LYMPHOCYTES % (AUTO) 21.9 % (20.0-44.0); MEAN CORPUSCULAR HEMOGLOBIN 24 PG (26.0-33.0); MEAN CORPUSCULAR HGB CONC 30 g/dl (31.0-36.0); MEAN CORPUSCULAR VOLUME 79 fL (80-96); MONOCYTES # (AUTO) 0.3 K/uL (0.1-1.30); NEUTROPHILS # (AUTO) 3.6 K/uL (1.8-8.9); NEUTROPHILS % (AUTO) 57.9 % (43.0-81.0); PLATELET COUNT (AUTO) 176 K/uL (150-450); RED BLOOD CELL COUNT(AUTO) 3.33 MIL/uL (4.5-6.0); RED CELL DISTRIBUTION WIDTH 23.2 % (11.5-15.0); WHITE BLOOD COUNT (AUTO) 6.3 K/uL (4.3-11.0)
[2024-05-04 07:32] LABS: CALCIUM, SERUM 8.7 mg/dL (8.5-10.1); CREATININE 3.5 mg/dL (0.6-1.3); POTASSIUM 4.7 mmol/L (3.5-5.1)
[2024-05-04 08:00] VITALS: BP 127/72; TEMP 97.9; O2SAT 100
[2024-05-04] MEDS: PANTOPRAZOLE 40 MG/PACK PACK GT SCH (08:40)
[2024-05-04 10:07] LABS: *SPE A/G RATIO 0.3 (0.7-1.7); *SPE ALBUMIN 1.6 g/dL (2.9-4.4); *SPE ALPHA-1-GLOBULIN 0.4 g/dL (0.0-0.4); *SPE BETA GLOBULIN 1.1 g/dL (0.7-1.3); *SPE M-SPIKE Not Observed g/dL (Not Observed); *SPE PROTEIN TOTAL 6.6 g/dL (6.0-8.5); *SPEGAMMA GLOBULIN 2.4 g/dL (0.4-1.8)
[2024-05-04] MEDS: PROSOURCE / PROSTAT (PYXIS) 30 ML UDC GT SCH (10:30)
[2024-05-04] MEDS: ARGININE/GLUTAMINE/CALCIUM BMB 1 EACH POWD.PACK GT SCH (10:30)
[2024-05-04 13:40] VITALS: O2SAT 98
[2024-05-04 16:00] VITALS: BP 151/95; TEMP 97.7; O2SAT 100
[2024-05-04] MEDS: FREE WATER VIA TUBE FEEDING GT SCH (17:43)
[2024-05-04] MEDS: JEVITY 1.5 CAL LIQUID 1,000 ML BOTTLE GT SCH (17:56)
[2024-05-04 20:00] VITALS: BP 128/94; TEMP 98.1; O2SAT 100
[2024-05-04 20:38] VITALS: O2SAT 100
[2024-05-05] VITALS (8 sets, daily range): BP systolic 106–158; BP diastolic 75–96; TEMP 97.5–98.3; O2SAT 98–100
[2024-05-05 07:38] LABS: BASOPHILS % (AUTO) 0.3 % (0.0-2.0); EOSINOPHILS % (AUTO) 13.9 % (0.0-6.0); HEMATOCRIT 29 % (39-51); HEMOGLOBIN 8.7 g/dL (13.5-17.5); LYMPHOCYTES # (AUTO) 1.3 K/uL (0.8-4.8); LYMPHOCYTES % (AUTO) 19.3 % (20.0-44.0); MEAN CORPUSCULAR HEMOGLOBIN 24 PG (26.0-33.0); MEAN CORPUSCULAR HGB CONC 30 g/dl (31.0-36.0); MEAN CORPUSCULAR VOLUME 79 fL (80-96); MONOCYTES # (AUTO) 0.4 K/uL (0.1-1.30); NEUTROPHILS # (AUTO) 4.2 K/uL (1.8-8.9); NEUTROPHILS % (AUTO) 60.5 % (43.0-81.0); PLATELET COUNT (AUTO) 215 K/uL (150-450)
[2024-05-05 07:51] LABS: CALCIUM, SERUM 8.8 mg/dL (8.5-10.1); POTASSIUM 4.8 mmol/L (3.5-5.1)
[2024-05-05] MEDS ORDERED: IV D5W 1,000 ML IV PRN (08:07)
[2024-05-05] MEDS: FREE WATER VIA TUBE FEEDING GT SCH (12:39)
[2024-05-05] MEDS: IV D5W 1,000 ML IV ONE (13:47)
[2024-05-06] VITALS (8 sets, daily range): BP systolic 140–170; BP diastolic 86–89; TEMP 97.7–99.1; O2SAT 98–100
[2024-05-06 07:07] LABS: BASOPHILS % (AUTO) 0.4 % (0.0-2.0); EOSINOPHILS # (AUTO) 1.1 K/uL (0.0-0.7); EOSINOPHILS % (AUTO) 15.4 % (0.0-6.0); HEMATOCRIT 29 % (39-51); HEMOGLOBIN 8.8 g/dL (13.5-17.5); LYMPHOCYTES # (AUTO) 1.3 K/uL (0.8-4.8); LYMPHOCYTES % (AUTO) 18.6 % (20.0-44.0); MEAN CORPUSCULAR HEMOGLOBIN 24 PG (26.0-33.0); MEAN CORPUSCULAR HGB CONC 31 g/dl (31.0-36.0); MEAN CORPUSCULAR VOLUME 78 fL (80-96); MONOCYTES # (AUTO) 0.5 K/uL (0.1-1.30); MONOCYTES % (AUTO) 6.5 % (2.0-12.0); NEUTROPHILS # (AUTO) 4.1 K/uL (1.8-8.9); NEUTROPHILS % (AUTO) 59.1 % (43.0-81.0); PLATELET COUNT (AUTO) 231 K/uL (150-450); RED BLOOD CELL COUNT(AUTO) 3.64 MIL/uL (4.5-6.0); RED CELL DISTRIBUTION WIDTH 23.1 % (11.5-15.0)
[2024-05-06 07:22] LABS: CALCIUM, SERUM 8.3 mg/dL (8.5-10.1); CREATININE 2.8 mg/dL (0.6-1.3); POTASSIUM 4.5 mmol/L (3.5-5.1)
[2024-05-06] MEDS: IV D5/0.45 NACL 1,000 ML IV PRN (15:02)
[2024-05-07] VITALS (9 sets, daily range): BP systolic 105–146; BP diastolic 69–101; TEMP 98.2; O2SAT 97–100
[2024-05-07 07:23] LABS: BASOPHILS % (AUTO) 0.1 % (0.0-2.0); EOSINOPHILS # (AUTO) 0.9 K/uL (0.0-0.7); EOSINOPHILS % (AUTO) 11.5 % (0.0-6.0); HEMATOCRIT 29 % (39-51); HEMOGLOBIN 8.9 g/dL (13.5-17.5); LYMPHOCYTES # (AUTO) 1.3 K/uL (0.8-4.8); LYMPHOCYTES % (AUTO) 17.2 % (20.0-44.0); MEAN CORPUSCULAR HEMOGLOBIN 24 PG (26.0-33.0); MEAN CORPUSCULAR HGB CONC 31 g/dl (31.0-36.0); MEAN CORPUSCULAR VOLUME 78 fL (80-96); MONOCYTES # (AUTO) 0.4 K/uL (0.1-1.30); MONOCYTES % (AUTO) 5.9 % (2.0-12.0); NEUTROPHILS # (AUTO) 4.9 K/uL (1.8-8.9); NEUTROPHILS % (AUTO) 65.3 % (43.0-81.0); PLATELET COUNT (AUTO) 219 K/uL (150-450); RED CELL DISTRIBUTION WIDTH 22.8 % (11.5-15.0); WHITE BLOOD COUNT (AUTO) 7.5 K/uL (4.3-11.0)
[2024-05-07 07:48] LABS: CALCIUM, SERUM 8.6 mg/dL (8.5-10.1); POTASSIUM 4.7 mmol/L (3.5-5.1)
[2024-05-07 07:59] LABS: CREATININE 2.9 mg/dL (0.6-1.3)
[2024-05-08] VITALS (9 sets, daily range): BP systolic 130–143; BP diastolic 87–97; TEMP 97.5–98.6; O2SAT 96–99
[2024-05-08 07:11] LABS: BASOPHILS % (AUTO) 0.3 % (0.0-2.0); EOSINOPHILS % (AUTO) 12.4 % (0.0-6.0); HEMATOCRIT 26 % (39-51); HEMOGLOBIN 8.3 g/dL (13.5-17.5); LYMPHOCYTES # (AUTO) 1.2 K/uL (0.8-4.8); LYMPHOCYTES % (AUTO) 15.6 % (20.0-44.0); MEAN CORPUSCULAR HEMOGLOBIN 24 PG (26.0-33.0); MEAN CORPUSCULAR HGB CONC 31 g/dl (31.0-36.0); MEAN CORPUSCULAR VOLUME 78 fL (80-96); MONOCYTES # (AUTO) 0.6 K/uL (0.1-1.30); NEUTROPHILS # (AUTO) 4.9 K/uL (1.8-8.9); NEUTROPHILS % (AUTO) 63.7 % (43.0-81.0); PLATELET COUNT (AUTO) 219 K/uL (150-450); RED CELL DISTRIBUTION WIDTH 22.6 % (11.5-15.0); WHITE BLOOD COUNT (AUTO) 7.8 K/uL (4.3-11.0)
[2024-05-08 07:32] LABS: CALCIUM, SERUM 8.1 mg/dL (8.5-10.1); CREATININE 2.7 mg/dL (0.6-1.3); POTASSIUM 4.6 mmol/L (3.5-5.1)
[2024-05-09] VITALS (10 sets, daily range): BP systolic 115–156; BP diastolic 89–106; TEMP 98.6–99.5; O2SAT 97–100
[2024-05-09 07:38] LABS: CALCIUM, SERUM 8.3 mg/dL (8.5-10.1); CREATININE 2.7 mg/dL (0.6-1.3); POTASSIUM 4.5 mmol/L (3.5-5.1)
[2024-05-09 08:05] LABS: BASOPHILS % (AUTO) 0.3 % (0.0-2.0); EOSINOPHILS # (AUTO) 0.7 K/uL (0.0-0.7); EOSINOPHILS % (AUTO) 9.2 % (0.0-6.0); HEMATOCRIT 29 % (39-51); HEMOGLOBIN 8.8 g/dL (13.5-17.5); LYMPHOCYTES # (AUTO) 1.1 K/uL (0.8-4.8); LYMPHOCYTES % (AUTO) 13.5 % (20.0-44.0); MEAN CORPUSCULAR HEMOGLOBIN 24 PG (26.0-33.0); MEAN CORPUSCULAR HGB CONC 31 g/dl (31.0-36.0); MEAN CORPUSCULAR VOLUME 77 fL (80-96); MONOCYTES # (AUTO) 0.5 K/uL (0.1-1.30); MONOCYTES % (AUTO) 6.7 % (2.0-12.0); NEUTROPHILS # (AUTO) 5.5 K/uL (1.8-8.9); NEUTROPHILS % (AUTO) 70.3 % (43.0-81.0); PLATELET COUNT (AUTO) 223 K/uL (150-450); RED BLOOD CELL COUNT(AUTO) 3.71 MIL/uL (4.5-6.0); RED CELL DISTRIBUTION WIDTH 22.6 % (11.5-15.0); WHITE BLOOD COUNT (AUTO) 7.8 K/uL (4.3-11.0)
[2024-05-09] MEDS: ACETAMINOPHEN 650 MG/20.3 ML UDC GT PRN (09:16)
[2024-05-10] VITALS (9 sets, daily range): BP systolic 142–158; BP diastolic 92–101; TEMP 98.1–99.1; O2SAT 96–100
[2024-05-10 07:41] LABS: BASOPHILS % (AUTO) 0.3 % (0.0-2.0); EOSINOPHILS # (AUTO) 0.7 K/uL (0.0-0.7); EOSINOPHILS % (AUTO) 8.3 % (0.0-6.0); HEMATOCRIT 27 % (39-51); HEMOGLOBIN 8.2 g/dL (13.5-17.5); LYMPHOCYTES # (AUTO) 1.2 K/uL (0.8-4.8); LYMPHOCYTES % (AUTO) 14.1 % (20.0-44.0); MEAN CORPUSCULAR HEMOGLOBIN 24 PG (26.0-33.0); MEAN CORPUSCULAR HGB CONC 31 g/dl (31.0-36.0); MEAN CORPUSCULAR VOLUME 78 fL (80-96); MONOCYTES # (AUTO) 0.6 K/uL (0.1-1.30); MONOCYTES % (AUTO) 6.9 % (2.0-12.0); NEUTROPHILS # (AUTO) 6.1 K/uL (1.8-8.9); NEUTROPHILS % (AUTO) 70.4 % (43.0-81.0); PLATELET COUNT (AUTO) 212 K/uL (150-450); RED BLOOD CELL COUNT(AUTO) 3.42 MIL/uL (4.5-6.0); WHITE BLOOD COUNT (AUTO) 8.6 K/uL (4.3-11.0)
[2024-05-10 07:42] LABS: CALCIUM, SERUM 8.4 mg/dL (8.5-10.1); CREATININE 2.6 mg/dL (0.6-1.3); POTASSIUM 4.7 mmol/L (3.5-5.1)
[2024-05-10 07:51] LABS: MAGNESIUM 2.1 mg/dL (1.8-2.4); PHOSPHORUS 5.3 mg/dL (2.5-4.9)
[2024-05-11] VITALS (8 sets, daily range): BP systolic 126–159; BP diastolic 79–109; TEMP 97.7–97.9; O2SAT 96–100
[2024-05-11 13:33] LABS: BILIRUBIN,TOTAL 0.2 mg/dL (0.2-1.0); CALCIUM, SERUM 8.6 mg/dL (8.5-10.1); CREATININE 2.8 mg/dL (0.6-1.3); MAGNESIUM 2.3 mg/dL (1.8-2.4); PHOSPHORUS 5.5 mg/dL (2.5-4.9); POTASSIUM 4.8 mmol/L (3.5-5.1); TOTAL PROTEIN, SERUM 6.8 g/dL (6.4-8.2)
[2024-05-11 13:39] LABS: BASOPHILS % (AUTO) 0.2 % (0.0-2.0); EOSINOPHILS # (AUTO) 0.8 K/uL (0.0-0.7); HEMATOCRIT 26 % (39-51); HEMOGLOBIN 8.2 g/dL (13.5-17.5); LYMPHOCYTES # (AUTO) 1.2 K/uL (0.8-4.8); LYMPHOCYTES % (AUTO) 15.2 % (20.0-44.0); MEAN CORPUSCULAR HEMOGLOBIN 24 PG (26.0-33.0); MEAN CORPUSCULAR HGB CONC 32 g/dl (31.0-36.0); MEAN CORPUSCULAR VOLUME 77 fL (80-96); MONOCYTES # (AUTO) 0.5 K/uL (0.1-1.30); MONOCYTES % (AUTO) 6.7 % (2.0-12.0); NEUTROPHILS # (AUTO) 5.3 K/uL (1.8-8.9); NEUTROPHILS % (AUTO) 67.9 % (43.0-81.0); PLATELET COUNT (AUTO) 226 K/uL (150-450); RED BLOOD CELL COUNT(AUTO) 3.36 MIL/uL (4.5-6.0); RED CELL DISTRIBUTION WIDTH 23.1 % (11.5-15.0); WHITE BLOOD COUNT (AUTO) 7.8 K/uL (4.3-11.0)
[2024-05-11 13:51] LABS: ALBUMIN 0.8 g/dL (3.4-5.0)
[2024-05-12] VITALS (10 sets, daily range): BP systolic 137–163; BP diastolic 77–90; TEMP 97.5–98.8; O2SAT 95–100
[2024-05-12 07:24] LABS: BASOPHILS % (AUTO) 0.4 % (0.0-2.0); EOSINOPHILS # (AUTO) 0.9 K/uL (0.0-0.7); EOSINOPHILS % (AUTO) 12.5 % (0.0-6.0); HEMATOCRIT 24 % (39-51); HEMOGLOBIN 7.4 g/dL (13.5-17.5); LYMPHOCYTES # (AUTO) 1.3 K/uL (0.8-4.8); LYMPHOCYTES % (AUTO) 18.1 % (20.0-44.0); MEAN CORPUSCULAR HEMOGLOBIN 24 PG (26.0-33.0); MEAN CORPUSCULAR HGB CONC 31 g/dl (31.0-36.0); MEAN CORPUSCULAR VOLUME 78 fL (80-96); MONOCYTES # (AUTO) 0.5 K/uL (0.1-1.30); MONOCYTES % (AUTO) 6.4 % (2.0-12.0); NEUTROPHILS # (AUTO) 4.5 K/uL (1.8-8.9); NEUTROPHILS % (AUTO) 62.6 % (43.0-81.0); PLATELET COUNT (AUTO) 217 K/uL (150-450); RED BLOOD CELL COUNT(AUTO) 3.07 MIL/uL (4.5-6.0); RED CELL DISTRIBUTION WIDTH 23.2 % (11.5-15.0); WHITE BLOOD COUNT (AUTO) 7.2 K/uL (4.3-11.0)
[2024-05-12 07:40] LABS: CALCIUM, SERUM 8.6 mg/dL (8.5-10.1); CREATININE 2.7 mg/dL (0.6-1.3); MAGNESIUM 2.4 mg/dL (1.8-2.4); PHOSPHORUS 5.9 mg/dL (2.5-4.9); POTASSIUM 5.1 mmol/L (3.5-5.1)
[2024-05-12] MEDS: IV 1/2NS 1000 ML 1,000 ML IV SCH (09:46)
[2024-05-12] MEDS: NEPRO 1,000 ML BOTTLE GT PRN (12:04)
[2024-05-12 15:39] LABS: HEMOGLOBIN 7.1 g/dL (13.5-17.5)
[2024-05-12] MEDS: PANTOPRAZOLE 40 MG VIAL IV SCH (16:24)
[2024-05-12 23:31] LABS: HEMOGLOBIN 7.8 g/dL (13.5-17.5)
[2024-05-13] VITALS (7 sets, daily range): BP systolic 135–140; BP diastolic 61–92; TEMP 97.7–98.4; O2SAT 96–99
[2024-05-13 07:26] LABS: HEMOGLOBIN 8.3 g/dL (13.5-17.5)
[2024-05-13 09:48] LABS: BILIRUBIN,TOTAL 0.2 mg/dL (0.2-1.0); CALCIUM, SERUM 8.6 mg/dL (8.5-10.1); CREATININE 2.6 mg/dL (0.6-1.3); POTASSIUM 4.6 mmol/L (3.5-5.1); TOTAL PROTEIN, SERUM 6.9 g/dL (6.4-8.2)
[2024-05-13 10:24] LABS: ALBUMIN 0.8 g/dL (3.4-5.0)
[2024-05-14] VITALS (9 sets, daily range): BP systolic 140–165; BP diastolic 75–100; TEMP 97.7–98.6; O2SAT 95–100
[2024-05-14 08:19] LABS: BASOPHILS % (AUTO) 0.3 % (0.0-2.0); EOSINOPHILS # (AUTO) 0.9 K/uL (0.0-0.7); EOSINOPHILS % (AUTO) 10.9 % (0.0-6.0); HEMATOCRIT 25 % (39-51); HEMOGLOBIN 7.6 g/dL (13.5-17.5); LYMPHOCYTES # (AUTO) 1.5 K/uL (0.8-4.8); LYMPHOCYTES % (AUTO) 17.9 % (20.0-44.0); MEAN CORPUSCULAR HEMOGLOBIN 24 PG (26.0-33.0); MEAN CORPUSCULAR HGB CONC 31 g/dl (31.0-36.0); MEAN CORPUSCULAR VOLUME 78 fL (80-96); MONOCYTES # (AUTO) 0.4 K/uL (0.1-1.30); MONOCYTES % (AUTO) 5.5 % (2.0-12.0); NEUTROPHILS # (AUTO) 5.3 K/uL (1.8-8.9); NEUTROPHILS % (AUTO) 65.4 % (43.0-81.0); PLATELET COUNT (AUTO) 264 K/uL (150-450); RED CELL DISTRIBUTION WIDTH 23.6 % (11.5-15.0); WHITE BLOOD COUNT (AUTO) 8.1 K/uL (4.3-11.0)
[2024-05-14 08:36] LABS: BILIRUBIN,TOTAL 0.2 mg/dL (0.2-1.0); CALCIUM, SERUM 8.5 mg/dL (8.5-10.1); CREATININE 2.4 mg/dL (0.6-1.3); POTASSIUM 4.1 mmol/L (3.5-5.1); TOTAL PROTEIN, SERUM 6.7 g/dL (6.4-8.2)
[2024-05-14 09:14] LABS: ALBUMIN 0.7 g/dL (3.4-5.0)
[2024-05-14 11:55] LABS: IRON, SERUM 23 ug/dl (50-175); TOTAL IRON BINDING CAPACITY 115 ug/dl (250-450)
[2024-05-14 12:12] LABS: FERRITIN 972 ng/mL (8-388)
[2024-05-14] MEDS: SOD FERRIC GLUC 125 MG in IV NS 0.9% 100 ML IV SCH (13:47)
[2024-05-15] VITALS (7 sets, daily range): BP systolic 146–165; BP diastolic 91–95; TEMP 97.9–98.4; O2SAT 95–99
[2024-05-15 07:27] LABS: BASOPHILS % (AUTO) 0.3 % (0.0-2.0); EOSINOPHILS # (AUTO) 0.8 K/uL (0.0-0.7); EOSINOPHILS % (AUTO) 10.5 % (0.0-6.0); HEMATOCRIT 26 % (39-51); LYMPHOCYTES # (AUTO) 1.7 K/uL (0.8-4.8); LYMPHOCYTES % (AUTO) 21.9 % (20.0-44.0); MEAN CORPUSCULAR HEMOGLOBIN 24 PG (26.0-33.0); MEAN CORPUSCULAR HGB CONC 31 g/dl (31.0-36.0); MEAN CORPUSCULAR VOLUME 78 fL (80-96); MONOCYTES # (AUTO) 0.4 K/uL (0.1-1.30); MONOCYTES % (AUTO) 5.3 % (2.0-12.0); NEUTROPHILS # (AUTO) 4.7 K/uL (1.8-8.9); PLATELET COUNT (AUTO) 270 K/uL (150-450); RED BLOOD CELL COUNT(AUTO) 3.33 MIL/uL (4.5-6.0); RED CELL DISTRIBUTION WIDTH 23.2 % (11.5-15.0); WHITE BLOOD COUNT (AUTO) 7.6 K/uL (4.3-11.0)
[2024-05-15 07:54] LABS: BILIRUBIN,TOTAL 0.1 mg/dL (0.2-1.0); CALCIUM, SERUM 8.3 mg/dL (8.5-10.1); CREATININE 2.4 mg/dL (0.6-1.3); TOTAL PROTEIN, SERUM 6.6 g/dL (6.4-8.2)
[2024-05-15 08:22] LABS: ALBUMIN 0.6 g/dL (3.4-5.0)
[2024-05-16 06:19] LABS: BASOPHILS % (AUTO) 0.4 % (0.0-2.0); EOSINOPHILS # (AUTO) 0.5 K/uL (0.0-0.7); EOSINOPHILS % (AUTO) 7.2 % (0.0-6.0); HEMATOCRIT 26 % (39-51); HEMOGLOBIN 8.1 g/dL (13.5-17.5); LYMPHOCYTES # (AUTO) 1.1 K/uL (0.8-4.8); LYMPHOCYTES % (AUTO) 14.7 % (20.0-44.0); MEAN CORPUSCULAR HEMOGLOBIN 25 PG (26.0-33.0); MEAN CORPUSCULAR HGB CONC 32 g/dl (31.0-36.0); MEAN CORPUSCULAR VOLUME 78 fL (80-96); MONOCYTES # (AUTO) 0.4 K/uL (0.1-1.30); NEUTROPHILS # (AUTO) 5.4 K/uL (1.8-8.9); NEUTROPHILS % (AUTO) 72.7 % (43.0-81.0); PLATELET COUNT (AUTO) 236 K/uL (150-450); RED BLOOD CELL COUNT(AUTO) 3.31 MIL/uL (4.5-6.0); RED CELL DISTRIBUTION WIDTH 23.4 % (11.5-15.0); WHITE BLOOD COUNT (AUTO) 7.4 K/uL (4.3-11.0)
[2024-05-16 06:29] LABS: BILIRUBIN,TOTAL 0.1 mg/dL (0.2-1.0); CALCIUM, SERUM 8.2 mg/dL (8.5-10.1); CREATININE 2.4 mg/dL (0.6-1.3); POTASSIUM 3.5 mmol/L (3.5-5.1); TOTAL PROTEIN, SERUM 6.3 g/dL (6.4-8.2)
[2024-05-16 07:22] VITALS: O2SAT 98
[2024-05-16 07:38] LABS: ALBUMIN 0.6 g/dL (3.4-5.0)
[2024-05-16 08:00] VITALS: BP 124/100; TEMP 99.3; O2SAT 100
[2024-05-16] MEDS ORDERED: FERR-56 PO (08:22)
[2024-05-16] MEDS: PANTOPRAZOLE 40 MG/PACK PACK GT SCH (09:25)
[2024-05-16] MEDS: FREE WATER VIA TUBE FEEDING GT SCH (09:26)
[2024-05-16 11:04] VITALS: O2SAT 97
[2024-05-16 15:10] VITALS: O2SAT 98
== END 2024-05-16 17:31 | DRG 710 ==
LOC: ER 07:39 → TELE 10:14 → MED 05-01 09:34
PROVIDERS: ATTEND Internal Medicine
PROC: 02HV33Z Insertion of Infusion Device into Superior Vena Cava, Percutaneous Approach (ICD-10-PCS; 2024-04-30)
PROC: B548ZZA Ultrasonography of Superior Vena Cava, Guidance (ICD-10-PCS; 2024-04-30)
PROC: 0W9B30Z Drainage of Left Pleural Cavity with Drainage Device, Percutaneous Approach (ICD-10-PCS; principal; 2024-05-03)
PROC: 0KBV0ZZ Excision of Right Foot Muscle, Open Approach (ICD-10-PCS; 2024-05-04)
PROC: 0KB70ZZ Excision of Right Upper Arm Muscle, Open Approach (ICD-10-PCS; 2024-05-05)
PROC: 0KBF0ZZ Excision of Right Trunk Muscle, Open Approach (ICD-10-PCS; 2024-05-05)
PROC: 0JB70ZZ Excision of Back Subcutaneous Tissue and Fascia, Open Approach (ICD-10-PCS; 2024-05-05)
PROC: 0KBG0ZZ Excision of Left Trunk Muscle, Open Approach (ICD-10-PCS; 2024-05-05)
PROC: 0KB80ZZ Excision of Left Upper Arm Muscle, Open Approach (ICD-10-PCS; 2024-05-05)
PROC: 0KBV0ZZ Excision of Right Foot Muscle, Open Approach (ICD-10-PCS; 2024-05-11)
PROC: 0JBQ0ZZ Excision of Right Foot Subcutaneous Tissue and Fascia, Open Approach (ICD-10-PCS; 2024-05-11)
DX: A41.9 Sepsis, unspecified organism (principal); J96.21 Acute and chronic respiratory failure with hypoxia; N17.0 Acute kidney failure with tubular necrosis; G93.41 Metabolic encephalopathy; L89.014 Pressure ulcer of right elbow, stage 4; E43 Unspecified severe protein-calorie malnutrition; J15.69 Pneumonia due to other Gram-negative bacteria; L89.894 Pressure ulcer of other site, stage 4; L89.024 Pressure ulcer of left elbow, stage 4; L89.153 Pressure ulcer of sacral region, stage 3; L89.134 Pressure ulcer of right lower back, stage 4; L89.144 Pressure ulcer of left lower back, stage 4; L89.893 Pressure ulcer of other site, stage 3; K92.2 Gastrointestinal hemorrhage, unspecified; R40.3 Persistent vegetative state; D68.59 Other primary thrombophilia; E87.0 Hyperosmolality and hypernatremia; J15.9 Unspecified bacterial pneumonia; R53.2 Functional quadriplegia; Z93.0 Tracheostomy status; Z20.822 Contact with and (suspected) exposure to COVID-19; D64.9 Anemia, unspecified; E88.09 Other disorders of plasma-protein metabolism, not elsewhere classified; Z74.09 Other reduced mobility; E86.1 Hypovolemia; E86.9 Volume depletion, unspecified; E87.1 Hypo-osmolality and hyponatremia; Z87.820 Personal history of traumatic brain injury; R13.10 Dysphagia, unspecified; I10 Essential (primary) hypertension; M24.561 Contracture, right knee; M24.562 Contracture, left knee; Z79.51 Long term (current) use of inhaled steroids; Z79.899 Other long term (current) drug therapy; B96.89 Other specified bacterial agents as the cause of diseases classified elsewhere; D62 Acute posthemorrhagic anemia; I73.9 Peripheral vascular disease, unspecified; J91.8 Pleural effusion in other conditions classified elsewhere; L97.519 Non-pressure chronic ulcer of other part of right foot with unspecified severity; M86.171 Other acute osteomyelitis, right ankle and foot; M89.8X9 Other specified disorders of bone, unspecified site; T36.8X5A Adverse effect of other systemic antibiotics, initial encounter; Y92.9 Unspecified place or not applicable; Y95 Nosocomial condition; Z79.2 Long term (current) use of antibiotics; Z99.11 Dependence on respirator [ventilator] status; Z93.1 Gastrostomy status; B37.49 Other urogenital candidiasis; Z74.01 Bed confinement status; J90 Pleural effusion, not elsewhere classified
CPT/HCPCS: 31720; 36415; 36569; 71045-TC; 76770-TC; 80048-TC; 80053-TC; 80076-TC; 80202-TC; 81001; 82272-TC; 82550-TC; 82570-TC; 82728-TC; 83540-TC; 83605-TC; 83735-TC; 83970; 84100-TC; 84155; 84165; 84300-TC; 84484-TC; 85025-TC; 85027-TC; 85730-TC; 87040-TC; 87081-TC; 87086-TC; 87102-TC; 88108-TC; 88305-TC; 88312-TC; 88341; 88342; 89051-TC; 93307-TC; 94640-TC; 94664-TC; 94760-TC; 94761-TC; 94762-TC; 94799-TC; 99082-TC; A4223; A4623; A6253; A6403; G0378; J0692; J1644; J2185; J2470; J2916; J3370; J3371; J3490; J7030; J7050; J7060; J7070

== ENCOUNTER 2024-07-27 12:14 | Inpatient (IN) | payer OTHER ==
[~2024-07-27] VITALS: Ht 175.3 cm; Wt 70.3 kg
[~2024-07-27 12:14] MED LIST changes: -ALBU2.5V13 IH; -CEFE2FRO IV; +COLL30OI TP; -DOCU100C36 GT; +FERR-56 PO; +LACT-96 GT; -NUTR250L62 GT; -ONDA-97 GT; +POVI3780 TP; -SENN-261 GT; +SENN-291 GT; -VANC750F IV; +ZINC220T3 GT; -ZINC50TA69 GT
[2024-07-27] MEDS ORDERED: LOSA50TA39 GT (13:00)
[2024-07-27] MEDS ORDERED: FURO20TA4 GT (13:00)
[2024-07-27] MEDS ORDERED: CHLO473M5 PO (13:00)
[2024-07-27] MEDS ORDERED: CRAN3875 GT (13:00)
[2024-07-27] MEDS ORDERED: MULT9LIQ6 GT (13:00)
[2024-07-27] MEDS ORDERED: EMPA10TA GT (13:00)
[2024-07-27] MEDS ORDERED: FERR220S2 GT (13:00)
[2024-07-27] MEDS ORDERED: ZINC50TA69 GT (13:00)
[2024-07-27] MEDS ORDERED: AMLO2.5T4 GT (13:00)
[2024-07-27] MEDS ORDERED: METO50TA16 GT (13:00)
[2024-07-27] MEDS ORDERED: ALBU0.633 NEB (13:00)
[2024-07-27] MEDS ORDERED: VANCOMYCIN 1 GM /D5W 250 ML PB IV ONE (13:35)
[2024-07-27 13:38] LABS: BASOPHILS % (AUTO) 0.3 % (0.0-2.0); EOSINOPHILS # (AUTO) 0.3 K/uL (0.0-0.7); EOSINOPHILS % (AUTO) 2.8 % (0.0-6.0); HEMATOCRIT 23 % (39-51); HEMOGLOBIN 7.3 g/dL (13.5-17.5); LYMPHOCYTES # (AUTO) 1.3 K/uL (0.8-4.8); LYMPHOCYTES % (AUTO) 13.2 % (20.0-44.0); MEAN CORPUSCULAR HEMOGLOBIN 27 PG (26.0-33.0); MEAN CORPUSCULAR HGB CONC 32 g/dl (31.0-36.0); MEAN CORPUSCULAR VOLUME 86 fL (80-96); MONOCYTES # (AUTO) 0.5 K/uL (0.1-1.30); MONOCYTES % (AUTO) 4.8 % (2.0-12.0); NEUTROPHILS # (AUTO) 7.9 K/uL (1.8-8.9); NEUTROPHILS % (AUTO) 78.9 % (43.0-81.0); PLATELET COUNT (AUTO) 502 K/uL (150-450); RED BLOOD CELL COUNT(AUTO) 2.67 MIL/uL (4.5-6.0); RED CELL DISTRIBUTION WIDTH 18.3 % (11.5-15.0)
[2024-07-27] MEDS: VANCOMYCIN 1 GM in IV D5W 250 ML IV ONE (13:40)
[2024-07-27 13:46] LABS: CALCIUM, SERUM 8.2 mg/dL (8.5-10.1); POTASSIUM 4.8 mmol/L (3.5-5.1)
[2024-07-27 13:51] LABS: INR 1.13 (0.91-1.10); PARTIAL THROMBOPLASTIN TIME 29.3 SEC (24.3-34.3); PROTHROMBIN TIME 11.5 SECS (9.2-11.1)
[2024-07-27 13:55] LABS: LACTIC ACID 1.1 mmol/L (0.4-2.0)
[2024-07-27] MEDS ORDERED: Z GUARD REMEDY 4 OZ OINT TP PRN (14:30)
[2024-07-27] MEDS ORDERED: NA PHOS,M-B/NA PHOS,DI-BA 1 EA ENEMA RC PRN (14:30)
[2024-07-27] MEDS ORDERED: HOME MED MISCELLANEOUS XX SCH (14:30)
[2024-07-27] MEDS ORDERED: IPRATROPIUM NEB FS 0.5 MG/2.5 ML AMPUL.NEB NEB PRN (14:30)
[2024-07-27] MEDS ORDERED: MAGNESIUM HYDROXIDE 30 ML UDC GT PRN (14:30)
[2024-07-27] MEDS ORDERED: ALBUTEROL FS 2.5 MG/3 ML VIAL.NEB NEB PRN (14:30)
[2024-07-27] MEDS ORDERED: ONDANSETRON HCL/PF 4 MG/2 ML VIAL IVP PRN (14:30)
[2024-07-27] MEDS ORDERED: GLYCOPYRROLATE 1 MG TABLET PO SCH (16:00)
[2024-07-27] MEDS: METOPROLOL TARTRATE 50 MG TABLET GT SCH (16:53)
[2024-07-27 17:00] VITALS: BP 98/72; TEMP 98.3; O2SAT 100
[2024-07-27] MEDS: PROSOURCE / PROSTAT (PYXIS) 30 ML UDC GT SCH (17:00)
[2024-07-27] MEDS: CHLORHEXIDINE GLUCONATE 15 ML UDC MM SCH (17:57)
[2024-07-27] MEDS: GLYCOPYRROLATE 1 MG TABLET GT SCH (17:57)
[2024-07-27] MEDS: LOSARTAN POTASSIUM 50 MG TABLET GT SCH (18:00)
[2024-07-27] MEDS: VANCOMYCIN 750 MG in IV D5W 250 ML IV ONE (18:24)
[2024-07-27 21:00] VITALS: BP 98/70; TEMP 98.5; O2SAT 100
[2024-07-27] MEDS: SENNOSIDES/DOCUSATE SODIUM 1 TAB TABLET GT SCH (21:30)
[2024-07-27] MEDS: PANTOPRAZOLE 40 MG/PACK PACK GT SCH (21:30)
[2024-07-27] MEDS: FUROSEMIDE 20 MG TABLET GT SCH (21:30)
[2024-07-28 01:00] VITALS: BP 94/65; TEMP 97.9; O2SAT 100
[2024-07-28] MEDS: VANCOMYCIN 750 MG in IV D5W 250 ML IV SCH ×2 (01:41→13:26)
[2024-07-28 05:00] VITALS: BP 95/67; TEMP 97.7; O2SAT 95
[2024-07-28 06:42] LABS: BASOPHILS % (AUTO) 0.4 % (0.0-2.0); EOSINOPHILS # (AUTO) 0.4 K/uL (0.0-0.7); EOSINOPHILS % (AUTO) 6.7 % (0.0-6.0); HEMATOCRIT 23 % (39-51); HEMOGLOBIN 7.1 g/dL (13.5-17.5); LYMPHOCYTES % (AUTO) 16.4 % (20.0-44.0); MEAN CORPUSCULAR HEMOGLOBIN 27 PG (26.0-33.0); MEAN CORPUSCULAR HGB CONC 31 g/dl (31.0-36.0); MEAN CORPUSCULAR VOLUME 86 fL (80-96); MONOCYTES # (AUTO) 0.4 K/uL (0.1-1.30); MONOCYTES % (AUTO) 6.7 % (2.0-12.0); NEUTROPHILS # (AUTO) 4.4 K/uL (1.8-8.9); NEUTROPHILS % (AUTO) 69.8 % (43.0-81.0); PLATELET COUNT (AUTO) 475 K/uL (150-450); RED BLOOD CELL COUNT(AUTO) 2.68 MIL/uL (4.5-6.0); WHITE BLOOD COUNT (AUTO) 6.4 K/uL (4.3-11.0)
[2024-07-28 07:17] LABS: CALCIUM, SERUM 8.2 mg/dL (8.5-10.1); CREATININE 1.1 mg/dL (0.6-1.3); MAGNESIUM 1.9 mg/dL (1.8-2.4); PHOSPHORUS 4.5 mg/dL (2.5-4.9); POTASSIUM 4.4 mmol/L (3.5-5.1)
[2024-07-28 08:00] VITALS: BP 96/60; TEMP 99.1; O2SAT 100
[2024-07-28] MEDS: FERROUS SULFATE UDC 300 MG/5 ML UDC GT SCH (09:45)
[2024-07-28] MEDS: MULTIVIT W/MINERALS 1 TAB TABLET GT SCH (09:45)
[2024-07-28] MEDS: ASCORBIC ACID 500 MG TABLET GT SCH (09:46)
[2024-07-28] MEDS: AMLODIPINE BESYLATE 2.5 MG TABLET GT SCH (09:46)
[2024-07-28] MEDS: EMPAGLIFLOZIN 10 MG TABLET GT SCH (09:47)
[2024-07-28] MEDS: ZINC SULFATE 220 MG CAPSULE GT SCH (09:47)
[2024-07-28] MEDS: DAKINS QUARTER STRENGTH (0.125%) 480 ML BOTTLE TOP SCH (11:13)
[2024-07-28 12:00] VITALS: BP 145/71; TEMP 97.7; O2SAT 100
[2024-07-28] MEDS ORDERED: JEVITY 1.2 CAL 1,000 ML BOTTLE GT SCH (13:00)
[2024-07-28 16:00] VITALS: BP 90/54; TEMP 98.8; O2SAT 100
[2024-07-28] MEDS ORDERED: PROSOURCE / PROSTAT (PYXIS) 30 ML UDC GT SCH (17:00)
[2024-07-28] MEDS: ARGININE/GLUTAMINE/CALCIUM BMB 1 EACH POWD.PACK GT SCH (17:36)
[2024-07-28] MEDS: JEVITY 1.2 CAL 1,000 ML BOTTLE GT SCH (17:36)
[2024-07-28 20:00] VITALS: BP 102/66; TEMP 98.8; O2SAT 100
[2024-07-29] VITALS (12 sets, daily range): BP systolic 96–132; BP diastolic 52–77; TEMP 98.4–99.7; O2SAT 100
[2024-07-29 06:03] LABS: BASOPHILS % (AUTO) 0.3 % (0.0-2.0); EOSINOPHILS # (AUTO) 0.6 K/uL (0.0-0.7); EOSINOPHILS % (AUTO) 8.4 % (0.0-6.0); HEMATOCRIT 21 % (39-51); MEAN CORPUSCULAR HEMOGLOBIN 28 PG (26.0-33.0); MEAN CORPUSCULAR HGB CONC 32 g/dl (31.0-36.0); MEAN CORPUSCULAR VOLUME 86 fL (80-96); MONOCYTES # (AUTO) 0.5 K/uL (0.1-1.30); MONOCYTES % (AUTO) 6.5 % (2.0-12.0); NEUTROPHILS % (AUTO) 70.8 % (43.0-81.0); PLATELET COUNT (AUTO) 459 K/uL (150-450); RED BLOOD CELL COUNT(AUTO) 2.43 MIL/uL (4.5-6.0); RED CELL DISTRIBUTION WIDTH 17.6 % (11.5-15.0)
[2024-07-29 06:06] LABS: HEMOGLOBIN 6.7 g/dL (13.5-17.5)
[2024-07-29 06:08] LABS: BILIRUBIN,TOTAL 0.3 mg/dL (0.2-1.0); CALCIUM, SERUM 8.5 mg/dL (8.5-10.1); CREATININE 0.9 mg/dL (0.6-1.3); MAGNESIUM 1.8 mg/dL (1.8-2.4); PHOSPHORUS 3.6 mg/dL (2.5-4.9); POTASSIUM 3.8 mmol/L (3.5-5.1); TOTAL PROTEIN, SERUM 7.6 g/dL (6.4-8.2)
[2024-07-29 06:20] LABS: ALBUMIN 0.9 g/dL (3.4-5.0)
[2024-07-29 09:25] LABS: EOSINOPHILS % (MANUAL) 6 % (0-4); LYMPHOCYTES % (MANUAL) 9 % (16-48); MONOCYTES % (MANUAL) 6 % (0-11.0); NEUTROPHILS % (MANUAL) 79 (42-76); PLATELET ESTIMATE INCREASED
[2024-07-29 09:26] LABS: ANISOCYTOSIS 1+
[2024-07-30] VITALS: BP 107/78; TEMP 98.8; O2SAT 100
[2024-07-30] MEDS: VANCOMYCIN 1 GM in IV D5W 250ml IV SCH (02:33)
[2024-07-30 04:00] VITALS: BP 119/83; TEMP 99; O2SAT 100
[2024-07-30 06:42] LABS: CALCIUM, SERUM 8.2 mg/dL (8.5-10.1); POTASSIUM 4.4 mmol/L (3.5-5.1)
[2024-07-30 08:00] VITALS: BP 122/93; TEMP 98.8; O2SAT 100
[2024-07-30 08:07] LABS: PTH, INTACT 7 pg/mL (15-65)
[2024-07-30 10:09] LABS: BASOPHILS % (AUTO) 0.5 % (0.0-2.0); EOSINOPHILS # (AUTO) 0.5 K/uL (0.0-0.7); EOSINOPHILS % (AUTO) 5.9 % (0.0-6.0); HEMATOCRIT 30 % (39-51); LYMPHOCYTES # (AUTO) 1.1 K/uL (0.8-4.8); LYMPHOCYTES % (AUTO) 12.9 % (20.0-44.0); MEAN CORPUSCULAR HEMOGLOBIN 28 PG (26.0-33.0); MEAN CORPUSCULAR HGB CONC 30 g/dl (31.0-36.0); MEAN CORPUSCULAR VOLUME 94 fL (80-96); MONOCYTES # (AUTO) 0.7 K/uL (0.1-1.30); MONOCYTES % (AUTO) 8.3 % (2.0-12.0); NEUTROPHILS # (AUTO) 6.3 K/uL (1.8-8.9); NEUTROPHILS % (AUTO) 72.4 % (43.0-81.0); PLATELET COUNT (AUTO) 447 K/uL (150-450); RED BLOOD CELL COUNT(AUTO) 3.24 MIL/uL (4.5-6.0); RED CELL DISTRIBUTION WIDTH 18.1 % (11.5-15.0); WHITE BLOOD COUNT (AUTO) 8.7 K/uL (4.3-11.0)
[2024-07-30 12:00] VITALS: BP 112/85; TEMP 99.1; O2SAT 100
[2024-07-30] MEDS: ACETAMINOPHEN ES 500 MG TABLET GT PRN (13:53)
[2024-07-30 16:00] VITALS: BP 103/64; TEMP 98.2; O2SAT 100
[2024-07-30] MEDS: PIPERACILLIN /TAZOBACTAM 3.375 G in IV D5W 100 ML IV SCH (18:39)
[2024-07-30 20:00] VITALS: BP 92/61; TEMP 98.6; O2SAT 100
[2024-07-31] VITALS: BP 90/66; TEMP 97.7; O2SAT 100
[2024-07-31 04:00] VITALS: BP 92/69; TEMP 98.6; O2SAT 100
[2024-07-31 06:46] LABS: BASOPHILS % (AUTO) 0.2 % (0.0-2.0); EOSINOPHILS # (AUTO) 0.6 K/uL (0.0-0.7); HEMATOCRIT 25 % (39-51); HEMOGLOBIN 7.9 g/dL (13.5-17.5); LYMPHOCYTES # (AUTO) 2.3 K/uL (0.8-4.8); LYMPHOCYTES % (AUTO) 23.3 % (20.0-44.0); MEAN CORPUSCULAR HEMOGLOBIN 28 PG (26.0-33.0); MEAN CORPUSCULAR HGB CONC 32 g/dl (31.0-36.0); MEAN CORPUSCULAR VOLUME 90 fL (80-96); MONOCYTES % (AUTO) 10.1 % (2.0-12.0); NEUTROPHILS # (AUTO) 5.9 K/uL (1.8-8.9); NEUTROPHILS % (AUTO) 60.4 % (43.0-81.0); PLATELET COUNT (AUTO) 471 K/uL (150-450); RED BLOOD CELL COUNT(AUTO) 2.78 MIL/uL (4.5-6.0); RED CELL DISTRIBUTION WIDTH 17.2 % (11.5-15.0); WHITE BLOOD COUNT (AUTO) 9.8 K/uL (4.3-11.0)
[2024-07-31 07:03] LABS: CALCIUM, SERUM 8.4 mg/dL (8.5-10.1); CREATININE 1.1 mg/dL (0.6-1.3); POTASSIUM 4.5 mmol/L (3.5-5.1)
[2024-07-31 08:00] VITALS: BP 98/74; TEMP 98.1; O2SAT 100
[2024-07-31 12:00] VITALS: BP 103/77; TEMP 98.4; O2SAT 100
[2024-07-31 14:44] LABS: HIV-1 p24 ANTIGEN NON REACTIVE (NONREACTIVE); HIV-1/2 ANTIBODY NON REACTIVE (NONREACTIVE)
[2024-07-31 16:00] VITALS: BP 100/73; TEMP 98.8; O2SAT 100
[2024-07-31 20:00] VITALS: BP 92/68; TEMP 100.2; O2SAT 100
[2024-08-01] VITALS: BP 103/69; TEMP 99.2; O2SAT 100
[2024-08-01 04:00] VITALS: BP 95/71; TEMP 98.4; O2SAT 100
[2024-08-01 08:00] VITALS: BP 105/76; TEMP 98.4; O2SAT 100
[2024-08-01 12:19] VITALS: BP 90/64; TEMP 98.4; O2SAT 100
[2024-08-01 16:06] VITALS: BP 102/73; TEMP 98.8; O2SAT 100
[2024-08-01 20:00] VITALS: BP 95/67; TEMP 99.5; O2SAT 100
[2024-08-01 20:28] LABS: CALCIUM, SERUM 8.4 mg/dL (8.5-10.1)
[2024-08-02] VITALS: BP 95/69; TEMP 99; O2SAT 100
[2024-08-02 04:00] VITALS: BP 98/62; TEMP 99; O2SAT 100
[2024-08-02 07:20] LABS: CALCIUM, SERUM 7.9 mg/dL (8.5-10.1); CREATININE 1.1 mg/dL (0.6-1.3); POTASSIUM 3.9 mmol/L (3.5-5.1)
[2024-08-02 08:00] VITALS: BP 102/73; TEMP 97.4; O2SAT 100
[2024-08-02 12:00] VITALS: BP 107/71; TEMP 98.6; O2SAT 100
[2024-08-02 16:00] VITALS: BP 98/69; TEMP 99.3; O2SAT 100
[2024-08-02 20:00] VITALS: BP 108/76; TEMP 99.5; O2SAT 100
[2024-08-03] VITALS (7 sets, daily range): BP systolic 97–108; BP diastolic 68–73; TEMP 98.4–99.1; O2SAT 100
[2024-08-04] VITALS: BP 104/72; TEMP 98.4; O2SAT 100
[2024-08-04 04:00] VITALS: BP 105/60; TEMP 98.3
[2024-08-04 06:59] LABS: CALCIUM, SERUM 8.4 mg/dL (8.5-10.1); CREATININE 1.2 mg/dL (0.6-1.3); POTASSIUM 3.9 mmol/L (3.5-5.1)
[2024-08-04 08:09] VITALS: BP 127/71; TEMP 98.4; O2SAT 100
[2024-08-04 12:05] VITALS: BP 121/71; TEMP 98.4; O2SAT 100
[2024-08-05 08:11] LABS: *SPE A/G RATIO 0.2 (0.7-1.7); *SPE ALBUMIN 1.2 g/dL (2.9-4.4); *SPE ALPHA-1-GLOBULIN 0.4 g/dL (0.0-0.4); *SPE ALPHA-2-GLOBULIN 1.3 g/dL (0.4-1.0); *SPE BETA GLOBULIN 0.8 g/dL (0.7-1.3); *SPE GLOBULIN, TOTAL 5.6 g/dL (2.2-3.9); *SPE M-SPIKE Not Observed g/dL (Not Observed); *SPE PROTEIN TOTAL 6.8 g/dL (6.0-8.5); *SPEGAMMA GLOBULIN 3.1 g/dL (0.4-1.8)
== END 2024-08-04 15:02 | DRG 317 ==
LOC: ER 12:16 → TELE1 15:16
PROVIDERS: ADMIT Nurse Practitioner Acute Care; ATTEND Nurse Practitioner Acute Care
PROC: 5A1955Z Respiratory Ventilation, Greater than 96 Consecutive Hours (ICD-10-PCS; principal; 2024-07-27)
PROC: 30233N1 Transfusion of Nonautologous Red Blood Cells into Peripheral Vein, Percutaneous Approach (ICD-10-PCS; 2024-07-29)
PROC: 02HV33Z Insertion of Infusion Device into Superior Vena Cava, Percutaneous Approach (ICD-10-PCS; 2024-08-03)
PROC: 0KBB0ZZ Excision of Left Lower Arm and Wrist Muscle, Open Approach (ICD-10-PCS; 2024-08-04)
PROC: 0KBP0ZZ Excision of Left Hip Muscle, Open Approach (ICD-10-PCS; 2024-08-04)
PROC: 0KBN0ZZ Excision of Right Hip Muscle, Open Approach (ICD-10-PCS; 2024-08-04)
PROC: 0KBG0ZZ Excision of Left Trunk Muscle, Open Approach (ICD-10-PCS; 2024-08-04)
PROC: 0KBF0ZZ Excision of Right Trunk Muscle, Open Approach (ICD-10-PCS; 2024-08-04)
DX: M86.8X7 Other osteomyelitis, ankle and foot (principal); J96.21 Acute and chronic respiratory failure with hypoxia; G82.50 Quadriplegia, unspecified; G93.41 Metabolic encephalopathy; L89.024 Pressure ulcer of left elbow, stage 4; L89.134 Pressure ulcer of right lower back, stage 4; L89.154 Pressure ulcer of sacral region, stage 4; L89.514 Pressure ulcer of right ankle, stage 4; L89.144 Pressure ulcer of left lower back, stage 4; L89.893 Pressure ulcer of other site, stage 3; D68.59 Other primary thrombophilia; R78.81 Bacteremia; B96.5 Pseudomonas (aeruginosa) (mallei) (pseudomallei) as the cause of diseases classified elsewhere; B96.4 Proteus (mirabilis) (morganii) as the cause of diseases classified elsewhere; M24.562 Contracture, left knee; M24.561 Contracture, right knee; R13.10 Dysphagia, unspecified; B95.8 Unspecified staphylococcus as the cause of diseases classified elsewhere; Z53.20 Procedure and treatment not carried out because of patient's decision for unspecified reasons; I12.9 Hypertensive chronic kidney disease with stage 1 through stage 4 chronic kidney disease, or unspecified chronic kidney disease; N18.9 Chronic kidney disease, unspecified; E87.1 Hypo-osmolality and hyponatremia; E88.09 Other disorders of plasma-protein metabolism, not elsewhere classified; I73.9 Peripheral vascular disease, unspecified; Z87.820 Personal history of traumatic brain injury; Z93.0 Tracheostomy status; Z93.1 Gastrostomy status; Z99.11 Dependence on respirator [ventilator] status; Z79.84 Long term (current) use of oral hypoglycemic drugs; D75.839 Thrombocytosis, unspecified; D63.8 Anemia in other chronic diseases classified elsewhere; R79.89 Other specified abnormal findings of blood chemistry
CPT/HCPCS: 31720; 36415; 71045-TC; 73620-TC; 73630-TC; 80048-TC; 80053-TC; 80061-TC; 80202-TC; 82550-TC; 82553; 82962-TC; 83605-TC; 83735-TC; 83970; 84100-TC; 84155; 84165; 85025-TC; 85730-TC; 86803; 86850-TC; 87040-TC; 87081-TC; 87806; 94003-TC; 94760-TC; 94762-TC; 94799-TC; A4223; A4623; A6213; A6253; A6403; A7526; G0378; J2543; J3370; J3371; J7050; J7060; P9016